=== PATIENT | female | born 1945 | race Caucasian/White ===

== ENCOUNTER → 2022-07-02 15:13 | Outpatient (BNVA) | payer MEDICARE, OTHER, SELFPAY | PROVIDERS: PCP Family Medicine; Visit Provider Family Medicine | DX: E11.9 Type 2 diabetes mellitus without complications (principal); E78.5 Hyperlipidemia, unspecified; I48.91 Unspecified atrial fibrillation; Z95.0 Presence of cardiac pacemaker; R60.9 Edema, unspecified; K21.9 Gastro-esophageal reflux disease without esophagitis; K22.2 Esophageal obstruction; F32.4 Major depressive disorder, single episode, in partial remission; E11.42 Type 2 diabetes mellitus with diabetic polyneuropathy; Z79.01 Long term (current) use of anticoagulants; Z86.711 Personal history of pulmonary embolism; Z85.3 Personal history of malignant neoplasm of breast | CPT/HCPCS: 80053; 80061; 82043; 83036 ==

== ENCOUNTER 2022-07-08 01:00 | Outpatient (CLI) | payer MEDICARE, OTHER, SELFPAY | END 2022-07-08 23:00 | disposition home or self-care (01) | LOC: RAD 09-17 15:30 | PROVIDERS: PCP Family Medicine; Visit Provider Internal Medicine Cardiovascular Disease | DX: I50.9 Heart failure, unspecified (principal); R06.09 Other forms of dyspnea; R06.02 Shortness of breath; I48.91 Unspecified atrial fibrillation; Z86.711 Personal history of pulmonary embolism; I10 Essential (primary) hypertension; R60.9 Edema, unspecified; E78.5 Hyperlipidemia, unspecified | CPT/HCPCS: 36415; 80048; 83880; 85025; 99205 ==

== ENCOUNTER → 2022-07-29 09:42 | Outpatient (BNVA) | payer MEDICARE, OTHER, SELFPAY | PROVIDERS: PCP Family Medicine; Visit Provider Podiatrist Foot & Ankle Surgery | DX: E11.9 Type 2 diabetes mellitus without complications (principal); G62.9 Polyneuropathy, unspecified; B35.1 Tinea unguium; M20.10 Hallux valgus (acquired), unspecified foot; R60.9 Edema, unspecified; Z79.84 Long term (current) use of oral hypoglycemic drugs; Z79.4 Long term (current) use of insulin | CPT/HCPCS: 11721; 99203 ==

== ENCOUNTER 2022-08-08 06:05 | Outpatient (CLI) | payer MEDICARE, OTHER, SELFPAY ==
--- NOTE | 2022-08-08 06:15 | USCV_ITS ---
Merline Kramer Age: 77 Gender: F : 1945 Exam Date: 08/08/2022 06:15 Ordering Phys: Justin Lozano MD ([email or web address]) Technologist: Ilana Hernandez Exam Location: [facility] [place] Indication: History of PE and now unsteady. BP: / HR: 80 Rhythm: Sinus Technical Quality: Adequate MEASUREMENTS (Male / Female) Normal Values 2D ECHO LV Diastolic Diameter PLAX 3.4 cm 4.2 - 5.9 / 3.9 - 5.3 cm LV Systolic Diameter PLAX 2.0 cm LV Chamber Size 3.8 cm IVS Diastolic Thickness 1.2 cm 0.6 - 1.0 / 0.6 - 0.9 cm IVS Systolic Thickness 1.9 cm LVPW Diastolic Thickness 1.6 cm 0.6 - 1.0 / 0.6 - 0.9 cm LVPW Systolic Thickness 1.7 cm RV Chamber Size 3.0 cm LVOT Diameter 2.0 cm LV Ejection Fraction 2D Teich 73.0 % LV Ejection Fraction MOD 2C 74.4 % LV Ejection Fraction 2C AL 74.5 % LA Diameter 4.1 cm LA Width 3.6 cm LA Height 4.7 cm RA Width 2.6 cm RA Height 3.4 cm Aorta at Sinotubular Diameter 2.6 cm IVC Diameter 1.4 cm M-MODE Aortic Annulus Diameter 2.8 cm LA Ao Ratio MM 1.7 MV E Point Septal Separation 1.2 cm DOPPLER AV Peak Velocity 196.7 cm/s LVOT Peak Velocity 89.7 cm/s AV Area Cont Eq vti 1.6 cm squared AV Area Cont Eq pk 1.5 cm squared MV Area PHT 2.9 cm squared Mitral E to A Ratio 0.8 MV E' Velocity 50.5 cm/s Mitral E to MV E' Ratio 17.0 Mitral E to LV E' Lateral Ratio 15.8 Mitral E to LV E' Septal Ratio 18.6 TR Peak Velocity 266.1 cm/s TR Peak Gradient 28.3 mmHg TR Mean Velocity 196.8 cm/s TR Mean Gradient 17.7 mmHg TR Velocity Time Integral 93.0 cm TV Peak E Velocity 91.0 cm/s Right Atrial Pressure 3.0 mmHg Pulmonary Artery Systolic Pressu 31.3 mmHg PV Peak Velocity 74.0 cm/s RV Acceleration Time 0.1 s RV Ejection Time 0.3 s RV AcT/ET 0.4 FINDINGS Left Ventricle Normal left ventricular size and systolic function, EF 74 %. Mild left ventricular hypertrophy. No regional wall motion abnormalities. Grade I/IV diastolic dysfunction (abnormal relaxation filling pattern), normal to mildly elevated filling pressures. Right Ventricle Catheter/pacemaker wire in the right ventricular cavity. Right Atrium Catheter/pacemaker wire in the right atrial appendage. Left Atrium Mildly increased left atrial size. Mitral Valve Thickened mitral valve. Aortic Valve Thickened aortic valve. Trace to mild aortic valve regurgitation. Tricuspid Valve Mild tricuspid valve regurgitation. Estimated pulmonary artery peak systolic pressure of 31 mmHg Pulmonic Valve No gross abnormalities noted Pericardium No pericardial effusion. Aorta Normal aortic annulus size. IVC Normal inferior vena cava. CONCLUSIONS Normal left ventricular size and systolic function, EF 74 %. Mild left ventricular hypertrophy. No regional wall motion abnormalities. Grade I/IV diastolic dysfunction (abnormal relaxation filling pattern), normal to mildly elevated filling pressures. Mildly increased left atrial size. Thickened aortic valve. Trace to mild aortic valve regurgitation. Mild tricuspid valve regurgitation. Estimated pulmonary artery peak systolic pressure of 31 mmHg. Pacemaker wire was noted in the right atrium/right ventricle There is no pericardial effusion. No similar previous studies are available for comparison Dr Justin Lozano MD [facility] (Electronically Signed) Final Date: 08 August 2022 08:53 S
[2022-08-08 07:52] VITALS: BMI 38.2
--- NOTE | 2022-08-08 07:52 | ECG_ITS ---
[facility] Test Date: 2022-08-08 Pat Name: Merline Kramer Department: Room: Gender: Female Slot Attendant: : 1945 Requested By: Justin Lozano Order Number: [id number] Simón MD: Justin Lozano M.D. Interpretive Statements NAME OF STUDY: LEXISCAN SESTAMIBI STRESS TEST INDICATION: CHF, PROCEDURE: At the baseline, the EKG revealed normal sinus rhythm with poor R wave progression. Left axis deviation. Minimal voltage criteria for LVH. Nonspecific T wave changes. The baseline heart was 67 bpm with a blood pressue of 137/97 mm of Hg Lexiscan was infused over a period of 20 seconds. A total of 0.4 milligrams of Lexiscan was infused. The stress phase was continued for a total of 5 minutes. Heart rate at the end of the stress phase was 63 bpm with a blood pressure 167/86 mm of Hg. The EKG at the peak infusion revealed no significant changes. Sestamibi was injected 20 seconds after the Lexiscan infusion. Heart rate at the end of the recovery phase was 63 bpm with a blood pressure of 150/72 mm of Hg. CONCLUSION: 1. No significant EKG changes with the LexiScan infusion 2. No LexiScan induced chest pain or cardiac arrhythmia 3. Normal blood pressure and heart rate response 4. Sestamibi/sestamibi perfusion scan pending; see separate report. Electronically Signed On 08-13-2022 18:15:59 CLIENT SERVICE ASSOCIATE by Justin Lozano M.D. [id number]
--- NOTE | 2022-08-08 07:53 | NMCV_ITS ---
NM tiffany perf SPECT r/s* [id number] Merline Kramer Age: 77 Gender: F : 1945 Exam Date: 08/08/2022 07:53 Ordering Phys: Justin Lozano MD ([email or web address]) Technologist: LIAT Lemus Exam Location: [facility] Indications: CORONARY ANGIOPLASTY STATUS STRESS TEST [facility] IMAGE PROTOCOL Rest/Stress 1 Lexiscan Day Radiopharmaceutical Dose (mCi) Administration Site Administered by Rest: Tc-99m 10.8 IV Sestamibi Stress:Tc-99m 33.0 IV LIAT Mera Sestamibi Rest: 08-Aug-2022 60 Discovery 630 Stress: 08-Aug-2022 30 Discovery 630 0.4mg Lexiscan. Images obtained in supine and prone position. SPECT RESULTS Technical Quality: Excellent Raw Data Analysis: Normal Image Corrections: No attenuation or motion correction applied Summed Stress Score: 6 Summed Rest Score: 6 Summed Difference Score: 0 PERFUSION FINDINGS Small to moderate area of moderately decreased tracer uptake in the mid inferolateral, apical lateral, apical inferior and LV apex. No significant reversibility was noted in these regions FUNCTIONAL RESULTS (calculated via Gated SPECT) Stress Image LV EF (%): 61 Stress EDV (mL):83 TID: 1.02 Stress ESV (mL):32 FUNCTIONAL FINDINGS: Segmental wall motion analysis revealing no gross wall motion abnormalities IMPRESSIONS 1. Myocardial perfusion imaging revealing small to moderate area of persistent decreased tracer uptake in the mid inferolateral and apical regions suggesting myocardial scarring versus attenuation artifact. 2. Normal LV ejection fraction of 61%. 3. LV wall motion analysis revealing no gross wall motion abnormalities. 4. Normal LV volume Low probability for coronary ischemia, based on the above findings Dr Justin Lozano MD [facility] (Electronically Signed) Final Date: 08 August 2022 16:32 S
[2022-08-08] MEDS: regadenoson 0.4 Mg/5 ml Syringe IVP (09:53)
[2022-08-08 10:08] VITALS: BP 150/72; PULSE 63
== END 2022-08-08 06:06 | disposition home or self-care (01) ==
LOC: CDL 06:06
PROVIDERS: PCP Family Medicine; Visit Provider Internal Medicine Cardiovascular Disease
DX: I50.9 Heart failure, unspecified (principal); Z98.61 Coronary angioplasty status; Z86.711 Personal history of pulmonary embolism; I08.2 Rheumatic disorders of both aortic and tricuspid valves; Z95.0 Presence of cardiac pacemaker
CPT/HCPCS: 36415; 78452; 93017; 93306; 96374; A9500; J2785

== ENCOUNTER → 2022-08-23 11:23 | Outpatient (BNVA) | payer MEDICARE, OTHER, SELFPAY | PROVIDERS: PCP Family Medicine; Visit Provider Internal Medicine Cardiovascular Disease | DX: Z45.010 Encounter for checking and testing of cardiac pacemaker pulse generator [battery] (principal) | CPT/HCPCS: 93280 ==

== ENCOUNTER 2022-09-24 15:48 | Outpatient (CLI) | payer MEDICARE, OTHER, SELFPAY | END 2022-09-24 15:49 | disposition home or self-care (01) | LOC: LAB 15:51 | PROVIDERS: PCP Family Medicine; Visit Provider Internal Medicine Cardiovascular Disease | DX: I10 Essential (primary) hypertension (principal); E11.42 Type 2 diabetes mellitus with diabetic polyneuropathy; I48.91 Unspecified atrial fibrillation; I50.9 Heart failure, unspecified | CPT/HCPCS: 36415; 85610 ==

== ENCOUNTER → 2022-10-07 11:36 | Outpatient (BNVA) | payer MEDICARE, OTHER, SELFPAY | PROVIDERS: PCP Family Medicine; Visit Provider Internal Medicine Cardiovascular Disease | DX: I48.91 Unspecified atrial fibrillation (principal); R06.02 Shortness of breath; E11.42 Type 2 diabetes mellitus with diabetic polyneuropathy; Z86.711 Personal history of pulmonary embolism; E78.5 Hyperlipidemia, unspecified; Z95.0 Presence of cardiac pacemaker; I11.0 Hypertensive heart disease with heart failure; I50.32 Chronic diastolic (congestive) heart failure | CPT/HCPCS: 11721; 36415; 80048; 83880; 85610; 99214 ==

== ENCOUNTER → 2022-10-17 12:38 | Outpatient (BNVA) | payer MEDICARE, OTHER, SELFPAY | PROVIDERS: PCP Family Medicine; Visit Provider Internal Medicine Cardiovascular Disease | DX: I48.91 Unspecified atrial fibrillation (principal) | CPT/HCPCS: 85610 ==

== ENCOUNTER → 2022-10-23 11:58 | Outpatient (BNVA) | payer MEDICARE, OTHER, SELFPAY | PROVIDERS: PCP Family Medicine; Visit Provider Internal Medicine Cardiovascular Disease | DX: I48.91 Unspecified atrial fibrillation (principal) | CPT/HCPCS: 85610 ==

== ENCOUNTER → 2022-10-30 11:55 | Outpatient (BNVA) | payer MEDICARE, OTHER, SELFPAY | PROVIDERS: PCP Family Medicine; Visit Provider Internal Medicine Cardiovascular Disease | DX: I48.91 Unspecified atrial fibrillation (principal) | CPT/HCPCS: 85610 ==

== ENCOUNTER → 2022-11-07 08:55 | Outpatient (BNVA) | payer MEDICARE, OTHER, SELFPAY | PROVIDERS: PCP Family Medicine; Visit Provider Nurse Practitioner Family | DX: I11.0 Hypertensive heart disease with heart failure (principal); I50.9 Heart failure, unspecified; Z95.0 Presence of cardiac pacemaker; E11.42 Type 2 diabetes mellitus with diabetic polyneuropathy; Z79.4 Long term (current) use of insulin; Z79.82 Long term (current) use of aspirin; Z79.01 Long term (current) use of anticoagulants; E78.5 Hyperlipidemia, unspecified | CPT/HCPCS: 80048; 83880; 85610; 99214 ==

== ENCOUNTER → 2022-11-14 12:41 | Outpatient (BNVA) | payer MEDICARE, OTHER, SELFPAY | PROVIDERS: PCP Family Medicine; Visit Provider Internal Medicine Cardiovascular Disease | DX: I48.91 Unspecified atrial fibrillation (principal) | CPT/HCPCS: 85610 ==

== ENCOUNTER → 2022-11-22 09:59 | Outpatient (BNVA) | payer MEDICARE, OTHER, SELFPAY | PROVIDERS: PCP Family Medicine; Visit Provider Nurse Practitioner Family | DX: I50.9 Heart failure, unspecified (principal); E78.5 Hyperlipidemia, unspecified | CPT/HCPCS: 36415; 80048; 83880; 99214 ==

== ENCOUNTER 2022-12-04 07:06 | Outpatient (CLI) | payer MEDICARE, OTHER, SELFPAY ==
--- NOTE | 2022-12-04 07:15 | USCV_ITS ---
Merline Kramer Age: 77 Gender: F : 1945 Exam Date: 12/04/2022 07:36 Ordering Phys: Frances Giraldo Technologist: JULIANNA Exam Location: [facility] [place]_ Indication: HISTORY: Lower extremity swelling. Lower extremity edema. PROCEDURES: Venous duplex imaging was performed in bilateral lower extremities. The following venous structures were evaluated: common femoral vein, profunda vein, proximal portion of the greater saphenous vein, superficial femoral vein, and the popliteal vein. Serial compression, augmentation maneuvers, and spectral Doppler flow evaluation were performed. An evaluation for venous insufficiency was also completed. FINDINGS: Chronic DVT seen in Right CFV Brewer's cyst seen in Left Pop Fossa 4.2X2.3X4.2cm Edema seen in Bilat lower legs Echodensity was noted in the right common femoral vein. Significant reflux was noted in the right femoral and popliteal veins with reflux times of 1020 and 1870 ms. Echolucent areas were noted in the subcutaneous tissue of the calf. Echolucent area in the left popliteal fossa measuring 4.19 x 2.3 cm. Significant venous reflux was noted in the left popliteal vein with a reflux time of 1560 ms CONCLUSIONS 1. Features of old DVT with recanalization in the right common femoral vein. 2. Significant venous reflux of greater than 1000 ms were noted in the right femoral, popliteal and left popliteal veins 3. Echolucent area, suggesting a Brewer's cyst, measuring 4.19 x 2.3 cm in the left popliteal region 4. No significant venous insufficiency was noted in the superficial veins Dr Justin Lozano MD [facility] (Electronically Signed) Final Date: 06 December 2022 21:48 S
== END 2022-12-04 07:07 | disposition home or self-care (01) ==
LOC: RAD 07:09
PROVIDERS: PCP Family Medicine; Visit Provider Nurse Practitioner Family
DX: E11.42 Type 2 diabetes mellitus with diabetic polyneuropathy (principal); I10 Essential (primary) hypertension; R60.0 Localized edema; Z86.711 Personal history of pulmonary embolism; Z86.718 Personal history of other venous thrombosis and embolism
CPT/HCPCS: 93970

== ENCOUNTER → 2022-12-09 09:51 | Outpatient (BNVA) | payer MEDICARE, OTHER, SELFPAY | PROVIDERS: PCP Family Medicine; Referring Provider Family Medicine; Visit Provider Internal Medicine | DX: E11.42 Type 2 diabetes mellitus with diabetic polyneuropathy (principal); E78.5 Hyperlipidemia, unspecified; M81.0 Age-related osteoporosis without current pathological fracture; I50.9 Heart failure, unspecified; Z79.84 Long term (current) use of oral hypoglycemic drugs | CPT/HCPCS: 99204 ==

== ENCOUNTER 2022-12-09 11:52 | Emergency (ER) | payer MEDICARE, OTHER, SELFPAY ==
[2022-12-09 12:28] VITALS: BP 116/76; PULSE 69; RESP 15; TEMP 36.4; O2SAT 96; BMI 39.4
--- NOTE | 2022-12-09 12:39 | XR_ITS ---
WS: [id number] Exam: XR foot LT min 3V* [id number] Date/Time of Exam: 12/09/2022 1:06 PM Reason For Exam: Foot pain No acute fracture noted. The lateral view shows dorsal subluxation of at least 2 of the proximal meta tarsals at the Lisfranc joint. There is degenerative changes in the midfoot joints and the IP joints. Soft tissue swelling of the foot. XR/XR foot LT min 3V* [id number] IMPRESSION: 1. The lateral view shows partial dorsal subluxation of at least 2 proximal met atarsals. Difficult to determine exactly which ones from this study. There is m arked degenerative change in the midfoot joints and at the Lisfranc joint. 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 CT of the foot could be helpful for further workup if thought to be clinically warranted.
--- NOTE | 2022-12-09 13:46 | ED_ITS ---
Documented by User: [email or web address] Royal 12/10/22 07:12 HPI - Extremity Problem General: Chief complaint: Extremity Injury, Lower Stated complaint: Left Foot injury Time Seen by Provider: 12/09/22 13:17 History of Present Illness: Patient is a 77-year-old female comes to the ED with left foot pain and swelling. Past medical history of diabetes and peripheral neuropathy. Symptoms started approximately 2 days ago. Denies any known injury or trauma to cause pain or swelling in foot. Patient states that she did break a bone in her foot a couple years ago from just walking on it. She states that this pain is similar to her past foot fracture. She rates the pain currently a 9 out of 10 says it worsens with any ambulation. Denies any redness or warmth to foot. Associated symptoms: Deny chest pain, fever(s) or rash Review of Systems Const: Denies: fever(s), chills or fatigue Eyes: Denies: change in vision or eye discomfort ENMT: Denies: throat pain, odynophagia, nasal discharge or nasal congestion Card: Denies: chest pain, palpitations, edema, swelling of feet/ankles, dyspnea on exertion or orthopnea Resp: Denies: dyspnea, productive cough or non-productive cough GI: Denies: abdominal pain, nausea, vomiting, diarrhea, constipation or hematochezia : Denies: flank pain, dysuria or hematuria Musc: Reports: extremity pain (left foot) and extremity swelling (left foot); Denies: neck pain or back pain Skin/Breast: Denies: rash or new lesions Neuro: Denies: headache(s), numbness in extremities or weakness in extremities [facility] ED PFSH: Medical History Anticoagulated Atrial fibrillation Depression, major, in partial remission Diabetes mellitus Diabetic peripheral neuropathy GERD with stricture s/p dilation x 2 History of breast cancer History of nonmelanoma skin cancer History of pulmonary embolism Hyperlipidemia Insulin dependent diabetes mellitus Pacemaker Surgical History History of bunionectomy of right great toe History of cholecystectomy History of lumpectomy of left breast History of repair of right rotator cuff History of tonsillectomy History of ventral hernia repair Family History Mother CAD (coronary artery disease) Father Cancer lung (smoker) Grandfather Dementia Cancer Brother Diabetes Son Diabetes Daughter CAD (coronary artery disease) Grandmother CAD (coronary artery disease) Family/Other Chronic kidney disease (CKD) Denies family history of Clotting disorder Suicide Anesthesia complication Bleeding disorder Hypertension Stroke Social History Smoking and tobacco status: never smoked Alcohol intake: never Substance/Drug Use: never Lives independently: Yes Household members: spouse Marital status: Number of children: 3 Number of grandchildren: 4 Current occupational status: retired Physical Exam Const: COMMON NORMALS: patient oriented x3 HENMT: COMMON NORMALS: normocephalic HEAD & SCALP: normocephalic MOUTH: Normal oral and palatal mucosa present THROAT: posterior oropharynx normal and uvula midline Neck/C-Spine: COMMON NORMALS: supple GENERAL: Yes normal visual inspection Resp: COMMON NORMALS: normal respiratory effort, No retractions, No use of accessory muscles and clear to auscultation bilaterally AUSCULTATION: clear to auscultation bilaterally Cardio: COMMON NORMALS: regular rate, regular rhythm, S1 normal heart sound present, S2 normal heart sound present, No gallops present (Cardio), No clicks present (Cardio), No murmurs present (Cardio) and Peripheral pulses 2+ throughout RATE: regular rate RHYTHM: regular rhythm HEART SOUNDS: S1 normal heart sound present and S2 normal heart sound present PERIPHERAL PULSES: Peripheral pulses 2+ throughout GI: COMMON NORMALS: Normal to inspection, nondistended, normoactive bowel sounds present, Soft to palpation, non-tender and no masses PALPATION: Yes Soft to palpation : COMMON NORMALS: Yes no CVA tenderness BLADDER/KIDNEY EXAM: Yes no CVA tenderness Back/Pelvis: COMMON NORMALS: no CVA tenderness Extremity: NARRATIVE EXTREMITY EXAM: Left foot?2+ pitting edema in foot and ankle. Tenderness over midfoot region. No visible deformity, erythema or warmth noted. Neurovascular intact. Pedal pulse 2+. Neuro: COMMON NORMALS: patient oriented x3 GAIT: Yes Normal gait present Skin: GENERAL SKIN EXAM: dry skin Course Vital Signs: Vital signs: Vital Signs Temperature 97.6 F 12/09/22 12:28 Pulse Rate 65 12/09/22 17:03 Respiratory Rate 16 12/09/22 17:03 Blood Pressure 112/73 12/09/22 17:03 Pulse Oximetry 93 12/09/22 17:03 Oxygen Delivery Me thod Room Air 12/09/22 12:28 MDM - Extremity (Nontraumatic) Medical Decision Making Patient is a 77-year-old female comes to the ED with left foot pain and swelling. Past medical history of diabetes and peripheral neuropathy. Symptoms started approximately 2 days ago. Denies any known injury or trauma to cause pain or swelling in foot. Patient states that she did break a bone in her foot a couple years ago from just walking on it. She states that this pain is similar to her past foot fracture. She rates the pain currently a 9 out of 10 says it worsens with any ambulation. Denies any redness or warmth to foot. Vitals stable. Left foot?2+ pitting edema in foot and ankle. Tenderness over midfoot region. No visible deformity, erythema or warmth noted. Neurovascular intact. Pedal pulse 2+. Upon exam no concern for cellulitis, gout or septic joint. X-ray of left foot shows partial dorsal subluxation of at least 2 proximal metatarsals. Change in midfoot joints and at Lisfranc joint may represent beginnings of Charcot's neuropathy. I placed an order with case management for patient to be referred to Ortho or podiatry for arthralgia of left foot. Patient was put in a boot and told to use her walker and limit weightbearing on left foot until seen by orthopedist or lift electrician. Patient sent home with prescription for pain med. Return to ED precautions given. Dr. Olea reviewed case and agreed with plan. Lab Data Radiology Impressions Foot X-Ray 12/09/22 12:39 IMPRESSION: 1. The lateral view shows partial dorsal subluxation of at least 2 proximal metatarsals. Difficult to determine exactly which ones from this study. There is marked degenerative change in the midfoot joints and at the Lisfranc joint. 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 CT of the foot could be helpful for further workup if thought to be clinically warranted. Discharge Plan Discharge Patient Disposition: Home Clinical Impression: Arthralgia of foot, left Condition: Stable Prescriptions: No Action tramadol 50 mg tablet 50 mg PO DAILY PRN (Reason: pain) metformin 1,000 mg tablet 1,000 mg PO BID atorvastatin 80 mg tablet 80 mg PO DAILY aspirin 81 mg tablet,delayed release (DR/EC) 81 mg PO DAILY pantoprazole 40 mg tablet,delayed release (DR/EC) 40 mg PO DAILY Qty: 90 1RF potassium chloride 20 mEq tablet extended release 20 meq PO BID Qty: 60 5RF Xarelto 20 mg tablet 20 mg PO DAILY Rx Instructions: must administer with evening meal Novolin 70/30 U-100 Insulin 100 unit/mL (70-30) suspension 25 unit SUBCUT BID torsemide 20 mg tablet 40 mg PO QAM PRN (Reason: edema) Qty: 60 0RF lisinopril 5 mg tablet 5 mg PO DAILY Qty: 90 3RF metoprolol succinate 50 mg tablet extended release 24 hr 50 mg PO DAILY 90 Days Qty: 90 0RF pioglitazone 30 mg tablet 30 mg PO DAILY 90 Days Qty: 90 0RF sertraline 100 mg tablet 100 mg PO DAILY 90 Days Qty: 90 0RF (DME) insulin syringe-needle U-100 [BD Insulin Syringe] 1 mL 29 gauge x 1/2 syringe See Rx Instructions .Route Qty: 500 0RF Rx Instructions: Inject insulin, twice, daily. pregabalin [Lyrica] 150 mg capsule See Rx Instructions PO QAM Qty: 180 0RF Rx Instructions: 1 po qam & 2 po qpm Discharge Orders: Discharge ED (Routine); Ordered 12/09/22 Ordered By: Bolivar Curiel Referrals: Josefa Smith MD [Primary Care Provider] - Discharge Diet: Regular Discharge Activity: Limit activity as instructed and Use walker/crutches as instructed Patient Instructions: Arthralgia (ED), Opioid Safety Activity Restrictions/Additional Instructions: Follow-up with medical provider as directed. Case management should be contacting you in the next several days to set up an appointment with podiatry/orthopedic doctor for left foot pain and swelling. Wear boot and use walker to help with ambulation and limit any weightbearing on left foot. Take medications as prescribed. Return to the ER or your medical provider if condition worsens. Please read and understand discharge instructions. Thank you for choosing [facility] for your healthcare needs today. Please realize this is an emergency room and that we are providing you with a medical screening exam and this may not be complete and all inclusive of all the testing and or work up that you may need to determine your ailment or severity of your illness. It is very important that you follow up as instructed or that you return to the Emergency Department should you have concerns or if your condition changes or worsens in any way. Coding Level of Care Code ED Cash On Delivery Clerk for Chg Fwd Documented by User: Jabari Olea, 12/14/22 23:57 HPI - Extremity Problem General: Chief complaint: Extremity Injury, Lower Stated complaint: Left Foot injury Time Seen by Provider: 12/09/22 13:17 [facility] ED PFSH: Medical History Anticoagulated Atrial fibrillation Depression, major, in partial remission Diabetes mellitus Diabetic peripheral neuropathy GERD with stricture s/p dilation x 2 History of breast cancer History of nonmelanoma skin cancer History of pulmonary embolism Hyperlipidemia Insulin dependent diabetes mellitus Pacemaker Surgical History History of bunionectomy of right great toe History of cholecystectomy History of lumpectomy of left breast History of repair of right rotator cuff History of tonsillectomy History of ventral hernia repair Family History Mother CAD (coronary artery disease) Father Cancer lung (smoker) Grandfather Dementia Cancer Brother Diabetes Son Diabetes Daughter CAD (coronary artery disease) Grandmother CAD (coronary artery disease) Family/Other Chronic kidney disease (CKD) Denies family history of Clotting disorder Suicide Anesthesia complication Bleeding disorder Hypertension Stroke Social History Smoking and tobacco status: never smoked Alcohol intake: never Substance/Drug Use: never Lives independently: Yes Household members: spouse Marital status: Number of children: 3 Number of grandchildren: 4 Current occupational status: retired Course Vital Signs: Vital signs: Vital Signs Temperature 97.6 F 12/09/22 12:28 Pulse Rate 65 12/09/22 17:03 Respiratory Rate 16 12/09/22 17:03 Blood Pressure 112/73 12/09/22 17:03 Pulse Oximetry 93 12/09/22 17:03 Oxygen Delivery Me thod Room Air 12/09/22 12:28 MDM - Extremity (Nontraumatic) Medical Decision Making Patient is a 77-year-old female comes to the ED with left foot pain and swelling. Past medical history of diabetes and peripheral neuropathy. Symptoms started approximately 2 days ago. Denies any known injury or trauma to cause pain or swelling in foot. Patient states that she did break a bone in her foot a couple years ago from just walking on it. She states that this pain is similar to her past foot fracture. She rates the pain currently a 9 out of 10 says it worsens with any ambulation. Denies any redness or warmth to foot. Vitals stable. Left foot?2+ pitting edema in foot and ankle. Tenderness over midfoot region. No visible deformity, erythema or warmth noted. Neurovascular intact. Pedal pulse 2+. Upon exam no concern for cellulitis, gout or septic joint. X-ray of left foot shows partial dorsal subluxation of at least 2 proximal metatarsals. Change in midfoot joints and at Lisfranc joint may represent beginnings of Charcot's neuropathy. I placed an order with case management for patient to be referred to Ortho or podiatry for arthralgia of left foot. Patient was put in a boot and told to use her walker and limit weightbearing on left foot until seen by orthopedist or lift electrician. Patient sent home with prescription for pain med. Return to ED precautions given. Dr. Olea reviewed case and agreed with plan. This patient was originally seen by Mr. Moisés PA-C.? I agree with his history, evaluation, and treatment. Lab Data Radiology Impressions Foot X-Ray 12/09/22 12:39 IMPRESSION: 1. The lateral view shows partial dorsal subluxation of at least 2 proximal metatarsals. Difficult to determine exactly which ones from this study. There is marked degenerative change in the midfoot joints and at the Lisfranc joint. 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 CT of the foot could be helpful for further workup if thought to be clinically warranted. Discharge Plan Discharge Patient Disposition: Home Clinical Impression: Arthralgia of foot, left Condition: Stable Prescriptions: No Action tramadol 50 mg tablet 50 mg PO DAILY PRN (Reason: pain) metformin 1,000 mg tablet 1,000 mg PO BID atorvastatin 80 mg tablet 80 mg PO DAILY aspirin 81 mg tablet,delayed release (DR/EC) 81 mg PO DAILY pantoprazole 40 mg tablet,delayed release (DR/EC) 40 mg PO DAILY Qty: 90 1RF potassium chloride 20 mEq tablet extended release 20 meq PO BID Qty: 60 5RF Xarelto 20 mg tablet 20 mg PO DAILY Rx Instructions: must administer with evening meal Novolin 70/30 U-100 Insulin 100 unit/mL (70-30) suspension 25 unit SUBCUT BID torsemide 20 mg tablet 40 mg PO QAM PRN (Reason: edema) Qty: 60 0RF lisinopril 5 mg tablet 5 mg PO DAILY Qty: 90 3RF metoprolol succinate 50 mg tablet extended release 24 hr 50 mg PO DAILY 90 Days Qty: 90 0RF pioglitazone 30 mg tablet 30 mg PO DAILY 90 Days Qty: 90 0RF sertraline 100 mg tablet 100 mg PO DAILY 90 Days Qty: 90 0RF (DME) insulin syringe-needle U-100 [BD Insulin Syringe] 1 mL 29 gauge x 1/2 syringe See Rx Instructions .Route Qty: 500 0RF Rx Instructions: Inject insulin, twice, daily. pregabalin [Lyrica] 150 mg capsule See Rx Instructions PO QAM Qty: 180 0RF Rx Instructions: 1 po qam & 2 po qpm Discharge Orders: Discharge ED (Routine); Ordered 12/09/22 Ordered By: Bolivar Curiel Referrals: Josefa Smith MD [Primary Care Provider] - Discharge Diet: Regular Discharge Activity: Limit activity as instructed and Use walker/crutches as instructed Patient Instructions: Arthralgia (ED), Opioid Safety Activity Restrictions/Additional Instructions: Follow-up with medical provider as directed. Case management should be contacting you in the next several days to set up an appointment with podiatry/orthopedic doctor for left foot pain and swelling. Wear boot and use walker to help with ambulation and limit any weightbearing on left foot. Take medications as prescribed. Return to the ER or your medical provider if condition worsens. Please read and understand discharge instructions. Thank you for choosing [facility] for your healthcare needs today. Please realize this is an emergency room and that we are providing you with a medical screening exam and this may not be complete and all inclusive of all the testing and or work up that you may need to determine your ailment or severity of your illness. It is very important that you follow up as instructed or that you return to the Emergency Department should you have concerns or if your condition changes or worsens in any way. Coding Level of Care Code ED Cash On Delivery Clerk for Alberto Shetty
--- NOTE | 2022-12-09 13:48 | USCV_ITS ---
Merline Kramer Age: 77 Gender: F : 1945 Exam Date: 12/09/2022 15:16 Ordering Phys: Bolivar Curiel Technologist: CT [place] [facility] [place]: foot pain PROCEDURES: Venous duplex imaging was performed in only the left lower extremity. The following venous structures were evaluated: common femoral vein, profunda vein, proximal portion of the greater saphenous vein, superficial femoral vein, and the popliteal vein. In addition, the posterior tibial and peroneal trunk were evaluated. On the left side, the common femoral, superficial femoral, profunda femoral, popliteal, posterior tibial, greater saphenous veins, and the peroneal trunk were identified and interrogated in the standard fashion. These veins were found to be easily compressible with spontaneous blood flow. No evidence of insufficiency or thrombus noted. FINDINGS: no evidence of dvt, somewhat limited due to habitus, fv is small and difficult to see past the proximal portion in 2d. CONCLUSIONS No evidence of left lower extremity DVT. Somewhat limited exam Fausto Isbell MD (Electronically Signed) Final Date: 09 December 2022 17:11 S
[2022-12-09] MEDS: HYDROcodone-acetaminophen 7.5-325 mg Tablet 1 TAB PO (14:06)
--- NOTE | 2022-12-09 16:47 | PC.NURSE ---
PHYSICAL THERAPY APPLIED ORTHO BOOT TO PT LEFT LOWER EXTREMITY
[2022-12-09 17:00] VITALS: BP 112/73; PULSE 65; RESP 16; O2SAT 93
[2022-12-09 17:03] VITALS: BP 112/73; PULSE 65; RESP 16; O2SAT 93
--- NOTE | 2022-12-10 08:24 | DCPLANNER ---
Addendum entered by Martha Baldwin 12/18/22 11:23: Patient had a follow up appointment scheduled with ortho - patient did attend appointment. Addendum entered by Martha Baldwin 12/10/22 13:50: Patient has a follow up appointment scheduled for Friday, December 16, 2022 at 10:[address] Smallwood at ortho. Original Note: manager document control had message to schedule a follow up appointment for patient with ortho. manager document control sent patients information to the front office staff at ortho. Patients information will be printed and reviewed. Clinic will call patient with appointment information.
== END 2022-12-09 17:05 | disposition home or self-care (01) ==
PROVIDERS: Emergency Provider Physician Assistant; PCP Family Medicine
DX: M25.572 Pain in left ankle and joints of left foot (principal); Z79.82 Long term (current) use of aspirin; Z79.4 Long term (current) use of insulin; Z79.84 Long term (current) use of oral hypoglycemic drugs; E11.9 Type 2 diabetes mellitus without complications; Z85.3 Personal history of malignant neoplasm of breast; E78.5 Hyperlipidemia, unspecified; Z95.0 Presence of cardiac pacemaker
CPT/HCPCS: 73630; 93971; 97760; 99283; L4361

== ENCOUNTER 2022-12-16 11:34 | Outpatient (CLI) | payer MEDICARE, OTHER, SELFPAY ==
[2022-12-16 12:55] LABS: Chol HDL Ratio 2.59 mg/dL (0.0-4.40); Cholesterol 127 mg/dL (0-200); HDL Cholesterol 49 mg/dL (60-100); LDL Cholesterol Calculated 53 mg/dL (50-129); LDL HDL Ratio 1.08 RATIO (0.00-3.22); Triglycerides 127 mg/dL (0-150)
[2022-12-16 13:30] LABS: Estmated Average Glucose 148; Hemoglobin A1C 6.8 % (4.0-6.0)
== END 2022-12-16 11:35 | disposition home or self-care (01) ==
LOC: LAB 11:40
PROVIDERS: PCP Family Medicine; Visit Provider Internal Medicine
DX: E78.5 Hyperlipidemia, unspecified (principal); E11.42 Type 2 diabetes mellitus with diabetic polyneuropathy; G62.9 Polyneuropathy, unspecified; B35.1 Tinea unguium; M20.10 Hallux valgus (acquired), unspecified foot; R60.9 Edema, unspecified; S93.326A Dislocation of tarsometatarsal joint of unspecified foot, initial encounter; X58.XXXA Exposure to other specified factors, initial encounter; E11.9 Type 2 diabetes mellitus without complications; Z79.84 Long term (current) use of oral hypoglycemic drugs
CPT/HCPCS: 11721; 36415; 80061; 83036; 99213

== ENCOUNTER 2022-12-23 15:17 | Outpatient (CLI) | payer MEDICARE, OTHER, SELFPAY ==
--- NOTE | 2022-12-23 15:00 | CT_ITS ---
WS: [id number] CT LEFT FOOT, NONCONTRAST, 3-D. HISTORY: Lisfranc dislocation Technique: All CT scans at [facility] use at least one of these dose optimization techniques: automated exposure control; mA and/or kV adjustment per patient size (includes targeted exams where dose is matched to clinical indication); or iterative reconstruction. DLP: 123.92 mGy.cm COMPARISON: Radiographs 12/09/2022. Extensive fracture dislocation involving the tarsometatarsal articulations. 1. Marked widening between the proximal first and second metatarsals to 8.7 mm from a Lisfranc injury . 2. Abnormal alignment between the medial cuneiform and the proximal second metatarsal. Second metatar ld is slightly subluxed into the interspace between the first and second metatarsals. 3. Dorsal dislocation of the metatarsals is better visualized on the radiographs and is predominantly involving the second and possibly the third metatarsal. Second metatarsal dorsal subluxation by 11 m m. 4. Multiple small osseous fragments are identified in the midfoot. Small avulsion fractures from the medial cuneiform. There may be small avulsion from the base of the first metatarsal. There are multip le small bony fragments and fractures involving the intermediate cuneiform and the adjacent subluxed second metatarsal. Small avulsion fractures from the lateral cuneiform. Cuboid is probably intact. Na vicular is probably intact. There are small bony protrusions which may be osteophytes. Normal alignme nt with the remaining hindfoot. Small avulsion fractures between the articulation metatarsal and thir d and fourth metatarsals. Donor sites are indeterminate. 5. Extensive soft tissue edema surrounding the foot. 6. Calcaneus and talus are negative. CT/CT foot LT wo con* [id number] IMPRESSION: 1. Severe Lisfranc fracture dislocation. 2. Lisfranc joint widening up to 8.7 mm. 3. Dorsal subluxation by 11 mm at the second metatarsal. This is the predomina nt metatarsal with dorsal subluxation. 4. Numerous small avulsion fractures in the midfoot. Donor sites are difficult to determine but there are fracture sites from the cuneiforms, base of the fir st and second metatarsals. Tiny avulsion fractures between the third and fourth tarsometatarsal articulations, donor site indeterminate. 5. Subluxation with invagination of the intermediate cuneiform between the fir st and second proximal metatarsals.
== END 2022-12-23 15:18 | disposition home or self-care (01) ==
PROVIDERS: PCP Family Medicine; Visit Provider Podiatrist Foot & Ankle Surgery
DX: S93.326A Dislocation of tarsometatarsal joint of unspecified foot, initial encounter (principal); X58.XXXA Exposure to other specified factors, initial encounter; E11.42 Type 2 diabetes mellitus with diabetic polyneuropathy; E11.649 Type 2 diabetes mellitus with hypoglycemia without coma; E78.5 Hyperlipidemia, unspecified; M81.0 Age-related osteoporosis without current pathological fracture; Z79.4 Long term (current) use of insulin
CPT/HCPCS: 73700; 99213; 99214

== ENCOUNTER → 2022-12-30 13:27 | Outpatient (BNVA) | payer MEDICARE, OTHER, SELFPAY | PROVIDERS: PCP Family Medicine; Visit Provider Podiatrist Foot & Ankle Surgery | DX: E11.42 Type 2 diabetes mellitus with diabetic polyneuropathy (principal); G62.9 Polyneuropathy, unspecified; R60.9 Edema, unspecified; S93.322A Subluxation of tarsometatarsal joint of left foot, initial encounter; X58.XXXA Exposure to other specified factors, initial encounter; Z79.84 Long term (current) use of oral hypoglycemic drugs; Z79.4 Long term (current) use of insulin | CPT/HCPCS: 99214 ==

== ENCOUNTER → 2023-01-07 10:58 | Outpatient (BNVA) | payer MEDICARE, OTHER, SELFPAY | PROVIDERS: PCP Family Medicine; Visit Provider Clinical Nurse Specialist Adult Health | DX: Z01.818 Encounter for other preprocedural examination (principal) | CPT/HCPCS: 80048; 85025 ==

== ENCOUNTER 2023-01-09 08:55 | Day surgery (SDC) | payer MEDICARE, OTHER, SELFPAY ==
[2023-01-08 09:01] VITALS: BMI 36.8
[2023-01-09] VITALS (9 sets, daily range): BP systolic 98–174; BP diastolic 66–103; PULSE 62–70; RESP 16–18; TEMP 36.1; O2SAT 92–99
[2023-01-09 09:41] LABS: Glucose Point of Care 258 mg/dL (70-110)
[2023-01-09] MEDS: sodium chloride 0.9% 1,000 ML 30 ML IV (09:45)
[2023-01-09] MEDS: acetaminophen 1,000 MG/100 ML PIGGYBACK 400 MG IV (09:46)
[2023-01-09] MEDS: gabapentin 300 mg Capsule PO (09:46)
[2023-01-09 09:49] LABS: Basophils # 0.1 10^3/uL (0.0-0.1); Basophils % 0.7 %; Eosinophils # 0.3 10^3/uL (0.0-0.8); Eosinophils % 3.8 %; Hematocrit 40.8 % (37.0-47.0); Hemoglobin 13.3 g/dL (11.5-15.3); Lymphocytes # 2.6 10^3/uL (0.8-4.8); Lymphocytes % 34.4 %; Mean Corpuscular HGB Conc 32.6 g/dL (30.0-36.0); Mean Corpuscular Hemoglobin 29.3 pg (28.0-34.0); Mean Corpuscular Volume 89.9 fl (81-99); Mean Platelet Volume 10.7 fL (7.4-10.4); Monocytes # 0.8 10^3/uL (0.2-0.9); Monocytes % 10.1 %; Neutrophils # 3.85 10^3/uL (1.8-7.7); Neutrophils % 50.9 %; Nucleated Red Blood Cells % 0 %; Platelet Count 155 10^3/cmm (130-400); Red Blood Count 4.54 10^6/uL (4.1-5.3); Red Cell Distribution Width 13.8 % (12.1-15.1); White Blood Count 7.6 10^3/uL (4.0-10.0)
[2023-01-09 10:05] LABS: Anion Gap 15.5 (5-19); Blood Urea Nitrogen 29 mg/dL (8-23); Calcium 9.4 mg/dL (8.5-10.5); Carbon Dioxide 26 mmol/L (22-29); Chloride 99 mmol/L (98-107); Glucose 250 mg/dL (65-115); Osmolality Calculated 296 mOsm/kg (285-295); Potassium 4.5 mmol/L (3.5-5.1); Sodium 136 mmol/L (136-145)
[2023-01-09 10:06] LABS: Creatinine Clr Calc Pharmacy 42.3989
--- NOTE | 2023-01-09 10:41 | ANES.PREANE2 ---
Pre-Anesthetic Assessment Height/Weight: Height 1.63 m Weight 97.522 kg Temp Pulse Resp BP Pulse Ox O2 Del Method 97.0 F L 69 18 149/82 97 Room Air 01/09/23 09:46 01/09/23 09:46 01/09/23 09:46 01/09/23 09:46 01/09/23 09:46 01/09/23 09:55 Preop Diagnosis: Left foot Lisfranc fracture dislocation Operation Date: 01/09/23 10:45 Proposed Procedures p Lisfranc fusion of first, second, third tarsometatarsal joints left foot CPT 53406, S93.326A(Left) - Jessee Smallwood DPM Familial anesthetic complications: none Was Beta Beny taken within 24 hours: N/A Was Clonidine taken within 24 hours: N/A Last intake: Intake Last Liquid Date 01/08/23 Last Liquid Time 23:30 Last Solid Date 01/08/23 Last Solid Time 19:00 Social No alcohol and No tobacco Exam alert, oriented x 3, clear to auscultation bilaterally and regular rate & rhythm Airway Submandibular: within normal limits Cervical ROM: within normal limits Mallampati: Class II Dentition: full CV/HEM PE, anticoagulation, Pacemaker CONCLUSIONS ?Normal left ventricular size and systolic function, EF 74 %. ?Mild left ventricular hypertrophy. No regional wall motion ?abnormalities. Grade I/IV diastolic dysfunction (abnormal ?relaxation filling pattern), normal to mildly elevated filling ?pressures. ?Mildly increased left atrial size. ?Thickened aortic valve. Trace to mild aortic valve ?regurgitation. ?Mild tricuspid valve regurgitation.? Estimated pulmonary artery ?peak systolic pressure of 31 mmHg. ?Pacemaker wire was noted in the right atrium/right ventricle ?There is no pericardial effusion. ?No similar previous studies are available for comparison ?Dr Justin Lozano MD [facility] ?(Electronically Signed) ?Final Date:? ? ? July Chronic Renal Insufficiency GI Gastroesophageal Reflux Disease Metabolic Diabetes Mellitus, Hyperlipidemia and Morbid Obesity Neuropsych Anxiety, Depression and Neuropathy Anesthetic Plan ASA status: 3 Anesthesia: General and Regional (specify below) (left pop blk) Medications/Allergies Home Medications Medication Instructions Recorded Confirmed Last Taken Type aspirin 81 mg tablet,delayed 81 mg PO DAILY 07/02/22 01/08/23 01/08/23 History release atorvastatin 80 mg tablet 80 mg PO DAILY 07/02/22 01/08/2301/08/23 History pantoprazole 40 mg tablet,delayed 40 mg PO DAILY #90 tabs 07/02/22 01/08/23 01/08/23 Rx release tramadol 50 mg tablet 50 mg PO DAILY PRN pain 07/02/22 01/09/23 01/08/23 History lisinopril 5 mg tablet 5 mg PO DAILY #90 tabs 09/02/22 01/08/23 01/08/23 Rx pioglitazone 30 mg tablet 30 mg PO DAILY 90 days #90 tabs 09/02/22 01/08/23 01/08/23 Rx sertraline 100 mg tablet 100 mg PO DAILY 90 days #90 tabs 09/02/22 01/08/23 01/08/23 Rx insulin syringe-needle U-100 1 mL #500 ea 10/03/22 01/08/23 01/08/23 Rx 29 gauge x 1/2 (BD Insulin Syringe) potassium chloride 20 mEq 20 meq PO BID #60 tabs 10/07/22 01/08/23 01/08/23 Rx tablet,extended release insulin human U-100 NPH-regulr 25 unit SUBCUT BID 11/07/22 01/08/23 01/08/23 History 70-30 mix 100 unit/mL subcutaneous susp (Novolin 70/30 U-100 Insulin) torsemide 20 mg tablet 40 mg PO QAM PRN edema #60 tabs 11/07/22 01/09/23 01/08/23 Rx rivaroxaban 20 mg tablet (Xarelto) 20 mg PO DAILY 11/22/22 01/08/23 01/08/23 History wheelchair #1 ea 12/16/22 01/08/23 01/08/23 Rx metoprolol succinate 50 mg 50 mg PO DAILY 01/08/23 01/08/23 01/09/23 08:15 History tablet,extended release 24 hr pregabalin 150 mg capsule (Lyrica) 150 mg PO DIRECTED 01/08/23 01/08/23 01/08/23 History Allergies Allergy/AdvReac Type Severity Reaction Status Date / Time adhesive tape Allergy Severe rash Uncoded 01/08/23 08:59 latex Allergy rash Uncoded 01/08/23 08:59 Current Medications Generic Name Dose Route Start Last Admin Trade Name Freq PRN Reason Stop Dose Admin Sodium Chloride 1,000 mls @ 30 mls/hr 01/09/23 09:15 01/09/23 09:45 Sodium Chloride 0.9% IV 01/10/23 09:14 30 mls/hr .Q24H DEVORAH Administration PFSH Anesthesia Medical History (Updated 01/07/23 @ 15:17 by Ross Mckinnon NP) Anticoagulated Arthritis Atrial fibrillation CKD (chronic kidney disease) stage 2, GFR 60-89 ml/min Congestive heart failure chronic diastolic. 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 Sleep apnea compliant with CPAP Tricuspid regurgitation Surgical History History of bunionectomy of right great toe History of cholecystectomy History of esophageal dilatation History of lumpectomy of left breast History of repair of right rotator cuff History of tonsillectomy History of ventral hernia repair Hx of cardiac pacemaker Hx of cataract extraction Hx of cornea transplant Hx of tubal ligation Hx of umbilical hernia repair Family History Mother CAD (coronary artery disease) Father Cancer lung (smoker) Grandfather Dementia Cancer Brother Diabetes Son Diabetes Daughter CAD (coronary artery disease) Grandmother CAD (coronary artery disease) Family/Other Chronic kidney disease (CKD) Denies family history of Clotting disorder Suicide Anesthesia complication Bleeding disorder Hypertension Stroke Social History Smoking and tobacco status: never smoked Alcohol intake: never Substance/Drug Use: never Lives independently: Yes Household members: spouse Marital status: Number of children: 3 Number of grandchildren: 4 Current occupational status: retired Data Anesthesia 01/09/23 09:38 01/09/23 09:38 Short CBC 01/09/23 Range/Units 09:38 WBC 7.6 (4.0-10.0) 10^3/uL Hgb 13.3 (11.5-15.3) g/dL Hct 40.8 (37.0-47.0) % MCV 89.9 (81-99) fl Plt Count 155 (130-400) 10^3/cmm Neut % (Auto) 50.9 % Neut # (Auto) 3.85 (1.8-7.7) 10^3/uL BMP 01/09/23 09:38 Sodium 136 Potassium 4.5 Chloride 99 Carbon Dioxide 26 BUN 29 H Creatinine 1.3 H Glucose 250 H Calcium 9.4 Cardiac Studies: Echocardiogram 08/08/22 Sestamibi Stress Test (Cardiology) 08/08/22
--- NOTE | 2023-01-09 11:07 | W.PM.OPSUD ---
Surgery/Procedure H&P Update DATE OF PROCEDURE: January 09, 2023 DATE H&P PERFORMED: 12/30/22 CHANGES TO PREVIOUS DOCUMENTATION: No changes PREOP DIAGNOSIS: Left foot Lisfranc fracture dislocation PLANNED PROCEDURE: Operation Date: 01/09/23 10:45 Proposed Procedures p Lisfranc fusion of first, second, third tarsometatarsal joints left foot CPT 84966, S93.326A(Left) - Jessee Smallwood DPM
[2023-01-09] MEDS: ceFAZolin 2,000 MG in sodium chloride 0.9% (plus) 50 ML 100 MG IV (11:35)
--- NOTE | 2023-01-09 13:06 | ANES.PROC ---
Anesthesia Procedures Procedure/Date: 01/09/23 Nerve Block ^: Nerve Block 1: Main Anesthesia: general anesthesia Time Out Performed: Yes Consent: requested by attending/covering physician, from patient, risks and benefits reviewed and patient agrees to proceed Nerve block location: popliteal (left) Anesthesia monitors applied: pulse oximetry, EKG, BP cuff and oxygen Nerve block position: supine Anesthetic Used: ropivicaine 0.5% Amount of anesthesia used (mL): 30 Ultrasound used to: recognize landmarks Interscalene/Femoral BLK: 4 stimuplex 21 g needle used for position and inplane approach Injection: neg aspiration of heme Patient Tolerated Procedure: well Additional Comments: Difficult block secondary to large leg and large Brewer's cyst in popliteal fossa.
--- NOTE | 2023-01-09 14:01 | XR_ITS ---
WS: [id number] Left foot, 3 views, 01/09/2023 Clinical Data: post op left foot Comparison: Left foot, 12/09/2022 Findings: There are fusions of the bases of the first, second and third metatarsals with the corresponding cune iforms with plates and screws. There is soft tissue swelling about the foot especially on the dorsal surface. There is a fiberglass posterior splint. XR/XR foot LT min 3V* [id number] Impression: Complex fusion of the articulations between the first 3 metacarpals and the cor responding cuneiforms of the left foot.
[2023-01-09] MEDS: hyDRALAzine 20 mg/mL INJ 1 mL 10 MG IVP (14:10)
--- NOTE | 2023-01-09 16:57 | ANE.PACU2 ---
Inpatient post-anesthesia follow up: Airway intact: Yes Vital signs: Temperature 97 F Pulse Rate 66 Respiratory Rate 16 Blood Pressure 98/66 Pulse Oximetry 97 Oxygen Delivery Me thod Room Air Oxygen Flow Rate 8 Fraction of Inspir ed Oxygen Hydration adequate: Yes Nausea and vomiting: No Pain level: 2 Mental status: Baseline
--- NOTE | 2023-01-09 17:15 | PM.OP ---
Operative Report Date of procedure: January 09, 2023 Pre-op diagnosis: Preop Diagnosis Left foot Lisfranc fracture dislocation Post-op diagnosis: Same Post-op findings: Left foot Lisfranc fracture dislocation of tarsometatarsal joints 1, 2, 3 Procedure done: Lisfranc arthrodesis of left first, second, third tarsometatarsal joint CPT 73496 Implants: Lapidus plate with 3.5 locking screws from [place] [employer], angulated T plate angulated straight plate from [place] 28 with 2.7 locking screw Surgeon: Dr. Jessee Smallwood, D.P.M. Estimated blood loss: Less than 10 cc Complications: None Findings: See above Procedure: Patient is a 77-year-old female that has a history of left foot Lisfranc fracture dislocation. The patient has had the aforementioned chief complaint for some time. Conservative treatment measures have been attempted and the patient has opted for surgical intervention at this time. A lengthy discussion regarding the procedure, including risks and complications has been had with the patient and is noted in the recent clinic note. Written and verbal consent have been obtained. All patient questions have been answered to the patient?s satisfaction. No written or verbal guarantees have been given or implied. The patient has been NPO since midnight. The history has been reviewed and the history and physical is current. The signed consent was confirmed and placed in the patient chart. Patient imaging has been reviewed and is consistent with the diagnosis. Under mild sedation, the patient was brought into the operating room and placed on the table in the supine position. IV antibiotics were given by the anesthesia team as preoperative surgical prophylaxis. General sedation was then performed by the anesthesiateam. A pneumatic tourniquet was then placed about the left thigh. The operative extremity was then prepped and draped in the usual fashion. The extremity was then elevated and exsanguinated before the tourniquet was inflated to 325 mmHg. After inflation, the following procedure was then performed. Attention was directed to the dorsal medial aspect of the left first tarsometatarsal joint. A 5 cm incision was made using a #15 blade. Dissection was carried down through subcutaneous and superficial fascia to the level of the first tarsometatarsal joint articulation. Dissection was carried out to expose the first tarsometatarsal joint. With the joint exposed, a sagittal bone saw was used to remove articular cartilage from the base of the first metatarsal and the articular surface of the medial cuneiform. These articular surfaces were removed from the foot using a rongeur. The arthrodesis site was then fenestrated using a fenestration drill bit. Next, a Lapidus plate from [place] 28 was used to fixate the first tarsometatarsal joint in preparation for arthrodesis. Good positioning of the plate was noted and 3.5 locking screws was used to fixate the plate in this appropriate position. Good positioning of the plate and screws was noted on C-arm imaging. Next, attention was directed to the dorsum of the foot. A 5 cm incision was made over the second intermetatarsal space using a #15 blade. Dissection was carried down through subcutaneous and superficial fascia. Care was taken to protect adjacent neurovascular bundle. Dissection was carried down to the level of the second and third tarsometatarsal joints. The joint capsule was incised to expose the joints. There was noted to be comminution at these joints consistent with Lisfranc fracture dislocation. A rongeur was used to prep these joints for arthrodesis. After removal of the articular cartilage, DBX bone void filler was used to backfill the voids in preparation for arthrodesis. An angulated straight plate was used to span the second tarsometatarsal joint articulation and was filled with 2.7 mm locking screws. An angulated T plate was then used to span the third tarsometatarsal joint articulation. This was then fixated with 2.7 mm locking screws. Good positioning of the plate and screws was noted on C-arm imaging as well as clinically. Next, the incisions were irrigated with copious amounts of sterile saline before attention was directed to closure. Deep tissue was closed with 2-0 Vicryl followed by subcuticular closure with 3-0 Vicryl and skin closure with 3-0 nylon in horizontal mattress fashion. The tourniquet was let down and good hyperemic response was noted all digits of the left foot. The incision sites were dressed with Xeroform, 4 x 4 gauze, Kerlix before being placed in a well-padded below the knee posterior splint. The patient tolerated the procedure and anesthesia well and without complication. The patient was transported from the operating room to the recovery room with vital signs stable and vascular status intact to all digits of the left foot. The patient was given both written and verbal instructions to remain nonweightbearing to the operative extremity, to keep dressings/splint clean, dry and intact and to take pain medication as directed. The patient will follow-up in the outpatient setting at their scheduled appointment. The patient was discharged with my personal number and was instructed to call if any questions or issues should arise. They were discharged home once anesthesia criteria was met.
== END 2023-01-09 15:46 | disposition home or self-care (01) ==
PROVIDERS: Anesthesiology; PCP Family Medicine; Visit Provider Podiatrist Foot & Ankle Surgery
PROC: (CPT 28730; principal; 2023-01-09 10:35)
DX: S93.322A Subluxation of tarsometatarsal joint of left foot, initial encounter (principal); X58.XXXA Exposure to other specified factors, initial encounter; Z79.01 Long term (current) use of anticoagulants; Z95.0 Presence of cardiac pacemaker; Z86.711 Personal history of pulmonary embolism; N18.9 Chronic kidney disease, unspecified; K21.9 Gastro-esophageal reflux disease without esophagitis; E11.22 Type 2 diabetes mellitus with diabetic chronic kidney disease; E11.40 Type 2 diabetes mellitus with diabetic neuropathy, unspecified; Z79.4 Long term (current) use of insulin; Z79.82 Long term (current) use of aspirin
CPT/HCPCS: 28730; 36416; 36592; 73630; 76000; 80048; 82962; 85025; C1713; C1762; C9290; J0131; J0360; J0690; J1100; J2370; J2405; J2704; J2795; J3010; J3490; J7030

== ENCOUNTER → 2023-01-23 14:10 | Outpatient (BNVA) | payer MEDICARE, OTHER, SELFPAY | PROVIDERS: PCP Family Medicine; Visit Provider Podiatrist Foot & Ankle Surgery | DX: E11.42 Type 2 diabetes mellitus with diabetic polyneuropathy (principal); G62.9 Polyneuropathy, unspecified; R60.9 Edema, unspecified; S93.322A Subluxation of tarsometatarsal joint of left foot, initial encounter; X58.XXXA Exposure to other specified factors, initial encounter; Z79.4 Long term (current) use of insulin | CPT/HCPCS: 73630; 99024 ==

== ENCOUNTER → 2023-01-28 10:57 | Outpatient (BNVA) | payer MEDICARE, OTHER, SELFPAY | PROVIDERS: PCP Family Medicine; Visit Provider Podiatrist Foot & Ankle Surgery | DX: S90.821A Blister (nonthermal), right foot, initial encounter (principal); X58.XXXA Exposure to other specified factors, initial encounter; E11.42 Type 2 diabetes mellitus with diabetic polyneuropathy; G62.9 Polyneuropathy, unspecified; R60.9 Edema, unspecified; Z79.4 Long term (current) use of insulin | CPT/HCPCS: 10140; 29580; 99024 ==

== ENCOUNTER 2023-02-05 15:42 | Emergency (ER) | payer MEDICARE, OTHER, SELFPAY ==
[2023-02-05 16:01] VITALS: BP 108/68; PULSE 63; TEMP 36.7; O2SAT 93; BMI 36.8
--- NOTE | 2023-02-05 16:13 | W.ED.EXTPRO ---
HPI - Extremity Problem General: Chief complaint: Extremity Injury, Lower Stated complaint: right leg lac Time Seen by Provider: 02/05/23 16:13 History of Present Illness: 77-year-old lady with complex history on anticoagulation presenting to the emergency department for concern over right lower extremity wound and left lower extremity swelling. Patient is postop from fairly significant foot surgery and yesterday noticed increased pain and swelling. Seen by podiatry today with mild concern for DVT. Additionally she has a history of frequent falls and hit her sin on something earlier this morning. Had bleeding which took an extensive amount of time to stop and was noted to be pale in clinic and referred to ED for further evaluation. No other specific changes in health, exacerbating, or alleviating factors identified. Onset (ago): hour(s) Associated symptoms: Reports no associated symptoms Review of Systems General: Reports: 10 or more systems reviewed and unremarkable except in HPI and below PFSH ED PFSH: Medical History Anticoagulated Arthritis Atrial fibrillation CKD (chronic kidney disease) stage 2, GFR 60-89 ml/min Congestive heart failure chronic diastolic. 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 Sleep apnea compliant with CPAP Tricuspid regurgitation Surgical History History of bunionectomy of right great toe History of cholecystectomy History of esophageal dilatation History of lumpectomy of left breast History of repair of right rotator cuff History of tonsillectomy History of ventral hernia repair Hx of cardiac pacemaker Hx of cataract extraction Hx of cornea transplant Hx of tubal ligation Hx of umbilical hernia repair Family History Mother CAD (coronary artery disease) Father Cancer lung (smoker) Grandfather Dementia Cancer Brother Diabetes Son Diabetes Daughter CAD (coronary artery disease) Grandmother CAD (coronary artery disease) Family/Other Chronic kidney disease (CKD) Denies family history of Clotting disorder Suicide Anesthesia complication Bleeding disorder Hypertension Stroke Social History Smoking and tobacco status: never smoked Alcohol intake: never Substance/Drug Use: never Lives independently: Yes Household members: spouse Marital status: Number of children: 3 Number of grandchildren: 4 Current occupational status: retired Physical Exam Const: COMMON NORMALS: alert GENERAL APPEARANCE: cooperative and well developed HENMT: COMMON NORMALS: normocephalic and atraumatic HEAD & SCALP: normocephalic and atraumatic Eye: COMMON NORMALS: conjunctivae normal CONJUNCTIVA: Yes conjunctivae normal SCLERA: sclerae normal Neck/C-Spine: COMMON NORMALS: supple GENERAL: Yes trachea midline Resp: COMMON NORMALS: clear to auscultation bilaterally EFFORT & INSPECTION: Yes able to speak in complete sentences AUSCULTATION: clear to auscultation bilaterally Cardio: COMMON NORMALS: regular rate and regular rhythm RATE: regular rate RHYTHM: regular rhythm GI: COMMON NORMALS: Soft to palpation PALPATION: Yes Soft to palpation and No Tenderness to palpation present (GI) Extremity: NARRATIVE EXTREMITY EXAM: LLE in post op splint. distal cms intact, no cellulitis, swelling R sin laceration with contusion/swelling/hematoma GENERAL: Yes normal exam except as noted and No edema Neuro: COMMON NORMALS: moves all extremities SENSORIUM/ORIENTATION: Yes alert and No Orientation impaired Psych: COMMON NORMALS: mental status grossly normal and Normal thought process present THOUGHT PROCESS: Normal thought process present Procedures Laceration Laceration 1: Site: lower extremity Side (If applicable): right Size (cm): 3 Description: flap and irregular Depth: simple, single layer Local Anesthetic: lidocaine 1% and with epi Amount of anesthesia used (mL): 2.5 Pre-repair: wound explored, irrigated extensively and deep structures intact Skin layer closed with: nylon Size (cm): 4-0 Number of sutures: 5 Technique: simple, interrupted Course Vital Signs: Vital signs: Vital Signs Temperature 98.1 F 02/05/23 16:01 Pulse Rate 63 02/05/23 16:01 Blood Pressure 108/68 02/05/23 16:01 Pulse Oximetry 93 02/05/23 16:01 Oxygen Delivery Me thod Room Air 02/05/23 16:01 MDM - Extremity (Nontraumatic) Medical Decision Making 77-year-old lady presenting with 2 separate concerns. She endorses a laceration with difficulty controlling bleeding though bleeding is controlled on exam. She also endorses concern for possible DVT. Nontoxic in appearance and vitally satisfactory. Hemoglobin is normal. DVT study is negative. Laceration repaired, given swelling and superficial skin layer margins are not completely aligned however repair does provide protection and hemostasis. The results of ED evaluation were discussed with the patient including prescriptions and/or symptomatic cares (if applicable) including appropriate and responsible use, followup plan, and return precautions. The patient verbalized understanding and felt safe for discharge. Medical Records I reviewed the patient's medical records. Lab Data I reviewed the patient's lab results. 02/05/23 16:21 Radiology Impressions Venous Duplex 02/05/23 16:21 IMPRESSION: 1. No sonographic evidence of deep vein thrombosis. 2. 4.4 x 1.9 x 4.2 cm popliteal cyst. Laboratory Results Hgb 12.8 g/dL (11.5-15.3) 02/05/23 16:21 Hct 40.4 % (37.0-47.0) 02/05/23 16:21 Discharge Plan Discharge Patient Disposition: Home Clinical Impression: Brewer's cyst, Laceration of leg, right Condition: Stable Prescriptions: No Action aspirin 81 mg tablet,delayed release (DR/EC) 81 mg PO DAILY potassium chloride 20 mEq tablet extended release 20 meq PO BID Qty: 60 5RF Xarelto 20 mg tablet 20 mg PO DAILY Rx Instructions: must administer with evening meal hydrocodone-acetaminophen 5-325 mg tablet 1 tab PO Q6H PRN (Reason: pain) 7 Days Qty: 28 0RF (DME) CAM boot 8 See Rx Instructions .Route .MEDSUPPLY Qty: 1 0RF Rx Instructions: As directed / non weight bearing (DME) wheelchair See Rx Instructions .Route .MEDSUPPLY Qty: 1 0RF Rx Instructions: As directed Novolin 70/30 U-100 Insulin 100 unit/mL (70-30) suspension 25 unit SUBCUT BID torsemide 20 mg tablet 40 mg PO QAM PRN (Reason: edema) Qty: 60 0RF lisinopril 5 mg tablet 5 mg PO DAILY Qty: 90 3RF pioglitazone 30 mg tablet 30 mg PO DAILY 90 Days Qty: 90 0RF (DME) insulin syringe-needle U-100 [BD Insulin Syringe] 1 mL 29 gauge x 1/2 syringe See Rx Instructions .Route Qty: 500 0RF Rx Instructions: Inject insulin, twice, daily. atorvastatin 80 mg tablet 80 mg PO DAILY Qty: 30 0RF sertraline 100 mg tablet See Rx Instructions .ROUTE .COMPLEX Qty: 30 0RF Dose Instruction: Take 1 tablet by mouth once daily Rx Instructions: Take 1 tablet by mouth once daily pantoprazole 40 mg tablet,delayed release (DR/EC) See Rx Instructions .ROUTE .COMPLEX Qty: 30 0RF Dose Instruction: Take 1 tablet by mouth once daily Rx Instructions: Take 1 tablet by mouth once daily pregabalin 150 mg capsule See Rx Instructions .ROUTE .COMPLEX Qty: 90 0RF Rx Instructions: 1 cap po qam & 2 cap po qpm metoprolol succinate 50 mg tablet extended release 24 hr 50 mg PO DAILY Discharge Orders: Discharge ED (Routine); Ordered 02/05/23 Ordered By: Cassius Thacker Referrals: Josefa Smith MD [Primary Care Provider] - Discharge Diet: Usual diet Discharge Activity: Limit activity as instructed Patient Instructions: Care For Your Stitches (ED), Laceration (ED), Brewer Cyst (ED) Activity Restrictions/Additional Instructions: Thank you for visiting the emergency department. You were seen and evaluated for laceration and concern for DVT. No evidence of DVT was found. Laceration was repaired with stitches which require removal in 10 days. Please keep the area clean and dry and watch for signs of infection. Please follow all instructions given by previous physicians including podiatry. Return to the emergency department for signs of infection, uncontrolled pain or bleeding, or anything else that you are concerned about and feel needs emergency department evaluation Coding Level of Care Code ED Spinner Hand for Alberto Shetty
--- NOTE | 2023-02-05 16:21 | USR_ITS ---
PROCEDURE INFORMATION: Exam: US Duplex Left Lower Extremity Veins, Limited Exam date and time: 02/05/2023 5:08 PM Age: 77 years old Clinical indication: Pain; Leg, lower; Left; Prior surgery; Surgery date: <1 month; Surgery type: Broken foot; Additional info: Post op swelling/pain TECHNIQUE: Imaging protocol: Real-time duplex ultrasound of the left extremity with 2-D arteaga scale, color Doppler flow and spectral waveform analysis including responses to compression and other maneuvers (when performed) with image documentation. Limited exam focused on the left lower extremity veins. COMPARISON: CT foot LT wo con* [id number] 12/23/2022 3:33 PM FINDINGS: Left deep veins: Unremarkable. The common femoral, femoral, proximal profunda femoral popliteal, posterior tibial and peroneal veins are patent without thrombus. Normal compressibility, augmentation response and Doppler waveforms. Left superficial veins: Unremarkable. Saphenofemoral junction is patent without thrombus. Soft tissues: 4.4 x 1.9 x 4.2 cm popliteal cyst. US/CV venous duplex [facility] [id number] IMPRESSION: 1. No sonographic evidence of deep vein thrombosis. 2. 4.4 x 1.9 x 4.2 cm popliteal cyst.
[2023-02-05 16:27] LABS: Hematocrit 40.4 % (37.0-47.0); Hemoglobin 12.8 g/dL (11.5-15.3)
[2023-02-05] MEDS: tetanus-dipt-pertussis 0.5 mL SDV IM (17:33)
[2023-02-05] MEDS: lidocaine-epi 1% 20 mL INJ INJECTION (17:37)
== END 2023-02-05 18:24 | disposition home or self-care (01) ==
PROVIDERS: Emergency Provider Emergency Medicine; PCP Family Medicine
DX: S81.811A Laceration without foreign body, right lower leg, initial encounter (principal); W22.8XXA Striking against or struck by other objects, initial encounter; M71.21 Synovial cyst of popliteal space [Baker], right knee; Z79.01 Long term (current) use of anticoagulants; Z91.81 History of falling; Z23 Encounter for immunization; M79.89 Other specified soft tissue disorders; Z98.890 Other specified postprocedural states; R53.1 Weakness; I95.9 Hypotension, unspecified
CPT/HCPCS: 12002; 36415; 85014; 85018; 90471; 90715; 93971; 99024; 99284

== ENCOUNTER 2023-02-05 16:01 | Outpatient (CLI) | payer MEDICARE, OTHER, SELFPAY | END 2023-02-05 16:02 | disposition home or self-care (01) | LOC: SPT 16:06 | PROVIDERS: PCP Family Medicine; Visit Provider Podiatrist Foot & Ankle Surgery | DX: Z46.89 Encounter for fitting and adjustment of other specified devices (principal); Z98.890 Other specified postprocedural states | CPT/HCPCS: 97760; L4361 ==

== ENCOUNTER → 2023-02-19 15:17 | Outpatient (BNVA) | payer MEDICARE, OTHER, SELFPAY | PROVIDERS: PCP Family Medicine; Visit Provider Podiatrist Foot & Ankle Surgery | DX: M79.672 Pain in left foot (principal); Z98.890 Other specified postprocedural states | CPT/HCPCS: 73630; 99024 ==

== ENCOUNTER 2023-03-04 09:52 | Outpatient (RCR) | payer MEDICARE, OTHER, SELFPAY | END 2023-03-17 23:59 | disposition home or self-care (01) | LOC: SPT 09:52 | PROVIDERS: PCP Family Medicine; Visit Provider Podiatrist Foot & Ankle Surgery | DX: S93.325D Dislocation of tarsometatarsal joint of left foot, subsequent encounter (principal); X58.XXXD Exposure to other specified factors, subsequent encounter | CPT/HCPCS: 97110; 97163 ==

== ENCOUNTER → 2023-03-05 14:48 | Outpatient (BNVA) | payer MEDICARE, OTHER, SELFPAY | PROVIDERS: PCP Family Medicine; Visit Provider Podiatrist Foot & Ankle Surgery | DX: Z98.890 Other specified postprocedural states (principal) | CPT/HCPCS: 99024 ==

== ENCOUNTER 2023-03-18 06:00 | Outpatient (RCR) | payer MEDICARE, OTHER, SELFPAY | END 2023-04-17 23:59 | disposition home or self-care (01) | LOC: SPT 06:00 | PROVIDERS: PCP Family Medicine; Visit Provider Podiatrist Foot & Ankle Surgery | DX: S93.325D Dislocation of tarsometatarsal joint of left foot, subsequent encounter (principal); X58.XXXD Exposure to other specified factors, subsequent encounter | CPT/HCPCS: 97110 ==

== ENCOUNTER → 2023-03-26 14:00 | Outpatient (BNVA) | payer MEDICARE, OTHER, SELFPAY | PROVIDERS: PCP Family Medicine; Visit Provider Podiatrist Foot & Ankle Surgery | DX: E11.42 Type 2 diabetes mellitus with diabetic polyneuropathy; Z98.890 Other specified postprocedural states; E11.621 Type 2 diabetes mellitus with foot ulcer; L89.610 Pressure ulcer of right heel, unstageable; Z79.4 Long term (current) use of insulin | CPT/HCPCS: 99213 ==

== ENCOUNTER 2023-03-31 09:39 | Outpatient (CLI) | payer MEDICARE, OTHER, SELFPAY ==
[2023-03-31 11:00] LABS: Estmated Average Glucose 301; Hemoglobin A1C 12.1 % (4.0-6.0)
[2023-03-31 11:02] LABS: Alanine Aminotransferase 16 U/L (0-33); Albumin Level 3.8 g/dL (3.5-5.2); Alkaline Phosphatase 133 U/L (35-105); Anion Gap 13.5 (5-19); Aspartate Amino Transferase 18 U/L (0-32); Blood Urea Nitrogen 46 mg/dL (8-23); Calcium 9.1 mg/dL (8.5-10.5); Carbon Dioxide 30 mmol/L (22-29); Chloride 98 mmol/L (98-107); Chol HDL Ratio 3.14 mg/dL (0.0-4.40); Cholesterol 182 mg/dL (0-200); Globulin 3.4 g/dL (1.3-4.6); Glucose 307 mg/dL (65-115); HDL Cholesterol 58 mg/dL (60-100); LDL Cholesterol Calculated 61 mg/dL (50-129); LDL HDL Ratio 1.05 RATIO (0.00-3.22); Osmolality Calculated 307 mOsm/kg (285-295); Potassium 4.5 mmol/L (3.5-5.1); Sodium 137 mmol/L (136-145); Total Bilirubin 0.8 mg/dL (0.15-1.2); Total Protein 7.2 g/dL (6.6-8.7); Triglycerides 316 mg/dL (0-150)
[2023-03-31 11:16] LABS: Creatinine Urine, Random 97 mg/dL (28-217); Microalbum Creatinine Ratio Ur 10 mg/dL (0-20); Microalbumin Random Urine 1 ug/dL (0-20)
== END 2023-03-31 09:40 | disposition home or self-care (01) ==
LOC: LAB 09:43
PROVIDERS: PCP Family Medicine; Visit Provider Internal Medicine
DX: E11.42 Type 2 diabetes mellitus with diabetic polyneuropathy (principal); E11.22 Type 2 diabetes mellitus with diabetic chronic kidney disease; I13.0 Hypertensive heart and chronic kidney disease with heart failure and stage 1 through stage 4 chronic kidney disease, or unspecified chronic kidney disease; E78.5 Hyperlipidemia, unspecified; M81.0 Age-related osteoporosis without current pathological fracture; N18.2 Chronic kidney disease, stage 2 (mild); I50.32 Chronic diastolic (congestive) heart failure; Z79.899 Other long term (current) drug therapy; Z79.4 Long term (current) use of insulin; E11.65 Type 2 diabetes mellitus with hyperglycemia; I50.9 Heart failure, unspecified
CPT/HCPCS: 36415; 80053; 80061; 82044; 83036; 99214

== ENCOUNTER → 2023-04-03 11:28 | Outpatient (BNVA) | payer MEDICARE, OTHER, SELFPAY | PROVIDERS: PCP Family Medicine; Visit Provider Podiatrist Foot & Ankle Surgery | DX: E11.42 Type 2 diabetes mellitus with diabetic polyneuropathy; Z98.890 Other specified postprocedural states; E11.621 Type 2 diabetes mellitus with foot ulcer; L97.412 Non-pressure chronic ulcer of right heel and midfoot with fat layer exposed; Z79.4 Long term (current) use of insulin | CPT/HCPCS: 99213 ==

== ENCOUNTER → 2023-04-14 15:04 | Outpatient (BNVA) | payer MEDICARE, OTHER, SELFPAY | PROVIDERS: PCP Family Medicine; Visit Provider Internal Medicine | DX: E11.42 Type 2 diabetes mellitus with diabetic polyneuropathy (principal); B35.1 Tinea unguium; E78.5 Hyperlipidemia, unspecified; M81.0 Age-related osteoporosis without current pathological fracture; I50.9 Heart failure, unspecified; Z79.4 Long term (current) use of insulin; Z79.84 Long term (current) use of oral hypoglycemic drugs | CPT/HCPCS: 11721; 99214 ==

== ENCOUNTER → 2023-04-15 13:02 | Outpatient (BNVA) | payer MEDICARE, OTHER, SELFPAY | PROVIDERS: PCP Family Medicine; Visit Provider Nurse Practitioner Family | DX: E11.52 Type 2 diabetes mellitus with diabetic peripheral angiopathy with gangrene (principal); L97.411 Non-pressure chronic ulcer of right heel and midfoot limited to breakdown of skin | CPT/HCPCS: 97597; 99213; A6251 ==

== ENCOUNTER → 2023-04-22 15:25 | Outpatient (BNVA) | payer MEDICARE, OTHER, SELFPAY | PROVIDERS: PCP Family Medicine; Visit Provider Nurse Practitioner Family | DX: E11.52 Type 2 diabetes mellitus with diabetic peripheral angiopathy with gangrene (principal); L97.419 Non-pressure chronic ulcer of right heel and midfoot with unspecified severity | CPT/HCPCS: 97597; A6210 ==

== ENCOUNTER → 2023-04-23 14:16 | Outpatient (BNVA) | payer MEDICARE, OTHER, SELFPAY | PROVIDERS: PCP Family Medicine; Visit Provider Family Medicine | DX: R13.10 Dysphagia, unspecified (principal); L98.9 Disorder of the skin and subcutaneous tissue, unspecified; R60.0 Localized edema; E11.42 Type 2 diabetes mellitus with diabetic polyneuropathy; E78.5 Hyperlipidemia, unspecified; I50.9 Heart failure, unspecified; M81.0 Age-related osteoporosis without current pathological fracture; Z87.19 Personal history of other diseases of the digestive system | CPT/HCPCS: 80048; 80053; 80061; 82043; 83036; 83880 ==

== ENCOUNTER 2023-04-28 06:00 | Outpatient (RCR) | payer MEDICARE, OTHER, SELFPAY | END 2023-05-17 23:59 | disposition home or self-care (01) | LOC: SPT 06:00 | PROVIDERS: PCP Family Medicine; Visit Provider Podiatrist Foot & Ankle Surgery | DX: S93.325D Dislocation of tarsometatarsal joint of left foot, subsequent encounter (principal); X58.XXXD Exposure to other specified factors, subsequent encounter | CPT/HCPCS: 97110 ==

== ENCOUNTER 2023-04-28 12:56 | Outpatient (CLI) | payer MEDICARE, OTHER, SELFPAY ==
[2023-04-28 13:52] LABS: Blood Urea Nitrogen 62 mg/dL (8-23); Calcium 8.9 mg/dL (8.5-10.5); Carbon Dioxide 28 mmol/L (22-29); Chloride 95 mmol/L (98-107); Glucose 337 mg/dL (65-115); Osmolality Calculated 311 mOsm/kg (285-295); Sodium 135 mmol/L (136-145)
== END 2023-04-28 12:57 | disposition home or self-care (01) ==
PROVIDERS: PCP Family Medicine; Visit Provider Family Medicine
DX: R60.0 Localized edema (principal); E11.40 Type 2 diabetes mellitus with diabetic neuropathy, unspecified; E78.5 Hyperlipidemia, unspecified; M81.0 Age-related osteoporosis without current pathological fracture; I11.0 Hypertensive heart disease with heart failure; I50.9 Heart failure, unspecified; Z79.84 Long term (current) use of oral hypoglycemic drugs; Z79.4 Long term (current) use of insulin; Z95.0 Presence of cardiac pacemaker; I48.91 Unspecified atrial fibrillation
CPT/HCPCS: 80048; 99214

== ENCOUNTER → 2023-04-29 14:33 | Outpatient (BNVA) | payer MEDICARE, OTHER, SELFPAY | PROVIDERS: PCP Family Medicine; Visit Provider Nurse Practitioner Family | DX: E11.52 Type 2 diabetes mellitus with diabetic peripheral angiopathy with gangrene (principal); L97.412 Non-pressure chronic ulcer of right heel and midfoot with fat layer exposed | CPT/HCPCS: 97597; A6210; A6251 ==

== ENCOUNTER → 2023-05-06 17:03 | Outpatient (BNVA) | payer MEDICARE, OTHER, SELFPAY | PROVIDERS: PCP Family Medicine; Visit Provider Nurse Practitioner Family | DX: E11.52 Type 2 diabetes mellitus with diabetic peripheral angiopathy with gangrene (principal); L97.411 Non-pressure chronic ulcer of right heel and midfoot limited to breakdown of skin | CPT/HCPCS: 97597 ==

== ENCOUNTER 2023-05-12 15:10 | Outpatient (CLI) | payer MEDICARE, OTHER, SELFPAY ==
--- NOTE | 2023-05-12 15:30 | XR_ITS ---
WS: [id number] SCREENING DEXA SCAN [employer] CLINICAL INFORMATION: osteoporosis COMPARISON: None. FINDINGS: The L1-L4 bone mineral density measures 1.151 g/cm2. This corresponds to a T score score of -0.2 and Z score of 0.4. Left femoral neck bone mineral density measures 0.954 g/cm2. This corresponds to a T score of -0.4 an d Z score of 0.5. Right femoral neck bone mineral density measures 0.961 g/cm2. This corresponds to a T score -0.4of an d Z score of 0.6. Mean femoral neck bone mineral density measures 0.958 g/cm2. This corresponds to a T score of -0.4 an d Z score of 0.5. IMPRESSION: Normal bone mineralization. Patient's FRAX calculated 10 year probability for major osteoporotic fracture is 8.8% and osteoporoti c hip fracture is 1.3%.
== END 2023-05-12 15:11 | disposition home or self-care (01) ==
PROVIDERS: PCP Family Medicine; Visit Provider Internal Medicine
DX: M81.0 Age-related osteoporosis without current pathological fracture (principal); B35.1 Tinea unguium; E11.42 Type 2 diabetes mellitus with diabetic polyneuropathy; L89.610 Pressure ulcer of right heel, unstageable; Z98.890 Other specified postprocedural states; Z79.4 Long term (current) use of insulin
CPT/HCPCS: 77080; 99204; 99213

== ENCOUNTER → 2023-05-13 13:39 | Outpatient (BNVA) | payer MEDICARE, OTHER, SELFPAY | PROVIDERS: PCP Family Medicine; Visit Provider Nurse Practitioner Family | DX: E11.52 Type 2 diabetes mellitus with diabetic peripheral angiopathy with gangrene (principal); L97.411 Non-pressure chronic ulcer of right heel and midfoot limited to breakdown of skin | CPT/HCPCS: 97597; A6210; A6251 ==

== ENCOUNTER 2023-05-18 06:00 | Outpatient (RCR) | payer MEDICARE, OTHER, SELFPAY | END 2023-06-10 23:59 | disposition home or self-care (01) | LOC: SPT 06:00 | PROVIDERS: PCP Family Medicine; Visit Provider Podiatrist Foot & Ankle Surgery | DX: S93.325D Dislocation of tarsometatarsal joint of left foot, subsequent encounter (principal); X58.XXXD Exposure to other specified factors, subsequent encounter | CPT/HCPCS: 97110 ==

== ENCOUNTER → 2023-05-27 14:45 | Outpatient (BNVA) | payer MEDICARE, OTHER, SELFPAY | PROVIDERS: PCP Family Medicine; Visit Provider Nurse Practitioner Family | DX: E11.52 Type 2 diabetes mellitus with diabetic peripheral angiopathy with gangrene (principal); L97.411 Non-pressure chronic ulcer of right heel and midfoot limited to breakdown of skin | CPT/HCPCS: 97597; A6212 ==

== ENCOUNTER → 2023-06-03 14:35 | Outpatient (BNVA) | payer MEDICARE, OTHER, SELFPAY | PROVIDERS: PCP Family Medicine; Visit Provider Nurse Practitioner Family | DX: E11.52 Type 2 diabetes mellitus with diabetic peripheral angiopathy with gangrene (principal); E11.622 Type 2 diabetes mellitus with other skin ulcer; L97.411 Non-pressure chronic ulcer of right heel and midfoot limited to breakdown of skin | CPT/HCPCS: 97597 ==

== ENCOUNTER → 2023-06-10 13:46 | Outpatient (BNVA) | payer MEDICARE, OTHER, SELFPAY | PROVIDERS: PCP Family Medicine; Visit Provider Nurse Practitioner Family | DX: Z09 Encounter for follow-up examination after completed treatment for conditions other than malignant neoplasm (principal); Z87.2 Personal history of diseases of the skin and subcutaneous tissue | CPT/HCPCS: 99212; A6212 ==

== ENCOUNTER 2023-06-11 11:25 | Emergency (ER) | payer MEDICARE, OTHER, SELFPAY ==
--- NOTE | 2023-06-11 11:26 | XR_ITS ---
WS: [id number] Exam: XR shoulder RT min 2V* [id number] Date/Time of Exam: 06/11/2023 11:26 AM Reason For Exam: injury No acute fracture or dislocation. High riding humeral head probably indicates longstanding tear of th e rotator cuff. Minimal degenerative change of the AC joint and humeral head. Subacromial bone spurri ng. IMPRESSION: 1. No acute fracture. 2. Degenerative changes as discussed above.
[2023-06-11 11:46] VITALS: BP 174/90; PULSE 77; RESP 18; TEMP 36.8; O2SAT 94; BMI 36.8
--- NOTE | 2023-06-11 11:52 | W.ED.EXTPRO ---
HPI - Extremity Problem General: Chief complaint: Extremity Problem,Nontraumatic Stated complaint: right shoulder pain Time Seen by Provider: 06/11/23 11:33 Source: patient Mode of arrival: ambulatory Limitations: no limitations History of Present Illness: Patient is a 77-year-old female presents to ED today with a complaint of right shoulder pain. Patient states she chronically has pain in the right shoulder but states approximately 3 to 4 days ago she woke up with worsening shoulder pain. No acute injury or trauma noted. She feels like pain is worse with range of motion. She states pain is localized to her shoulder joint itself and does not extend into the right upper extremity limb. She has not noticed any color or temperature changes to the limb. She denies numbness, tingling, loss of sensation, or weakness. Denies neck pain. MD Complaint: joint pain Onset (ago): day(s) (chronically has had pain for years; worse over the past few days) Pain Consistency: constant Location: right and upper extremity Radiation: none Relieving factors: immobilization Exacerbating factors: range of motion Associated symptoms: Reports no associated symptoms; Deny chest pain, fever(s) or rash Review of Systems Const: Denies: fever(s), chills, body aches, fatigue or malaise Card: Denies: chest pain Resp: Denies: dyspnea Musc: Reports: joint pain (R shoulder) and limited range of motion (R shoulder secondary to pain); Denies: neck pain, back pain, extremity pain, extremity swelling, joint swelling, joint redness or joint warmth Skin/Breast: Denies: rash Neuro: Denies: headache(s), numbness in extremities, weakness in extremities or sensory changes PFSH ED PFSH: Medical History Anticoagulated Arthritis Atrial fibrillation CKD (chronic kidney disease) stage 2, GFR 60-89 ml/min Congestive heart failure chronic diastolic. 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 Sleep apnea compliant with CPAP Tricuspid regurgitation Surgical History History of bunionectomy of right great toe History of cholecystectomy History of esophageal dilatation History of lumpectomy of left breast History of repair of right rotator cuff History of tonsillectomy History of ventral hernia repair Hx of cardiac pacemaker Hx of cataract extraction Hx of cornea transplant Hx of tubal ligation Hx of umbilical hernia repair Family History Mother CAD (coronary artery disease) Father Cancer lung (smoker) Grandfather Dementia Cancer Brother Diabetes Son Diabetes Daughter CAD (coronary artery disease) Grandmother CAD (coronary artery disease) Family/Other Chronic kidney disease (CKD) Denies family history of Clotting disorder Suicide Anesthesia complication Bleeding disorder Hypertension Stroke Social History Smoking and tobacco/nicotine status: never used tobacco/nicotine Alcohol intake: never Substance/Drug Use: never Lives independently: Yes Household members: spouse Marital status: Number of children: 3 Number of grandchildren: 4 Current occupational status: retired Physical Exam Const: COMMON NORMALS: no acute distress, patient oriented x3, alert and well nourished Neck/C-Spine: COMMON NORMALS: full ROM and no lymphadenopathy GENERAL: Yes normal visual inspection CERVICAL SPINE: Yes cervical ROM normal, No pain with cervical ROM, No Cervical spine tenderness, No step off deformity and No Paracervical muscle tenderness Chest: COMMONS NORMALS: normal inspection of the chest Resp: COMMON NORMALS: normal respiratory effort Cardio: COMMON NORMALS: regular rate and regular rhythm RATE: regular rate RHYTHM: regular rhythm Back/Pelvis: COMMON NORMALS: thoracic and lumbar spine normal to inspection, no thoracic nor lumbar tenderness and thoraco-lumbar ROM normal Extremity: COMMON NORMALS: normal to inspection, capillary refill normal, no joint enlargement, no clubbing, cyanosis or edema and no pedal edema GENERAL: Yes normal exam except as noted RIGHT UPPER EXTREMITY: Yes shoulder joint (TTP anterior/superior aspect R shoudler) Right shoulder: Yes Right shoulder joint inspection exam (normal gross inspection), Yes Right shoulder joint ROM exam (limited active ROM; better with passive manipulation but still painful) and Yes Right shoulder joint neurovascular exam (normal) OTHER: radial pulse palpated, cap refill normal, normal sensation Neuro: COMMON NORMALS: patient oriented x3, moves all extremities, no focal motor deficits and no sensory deficits noted SENSORIUM/ORIENTATION: Yes alert Course Vital Signs: Vital signs: Vital Signs Temperature 98.3 F 06/11/23 11:46 Pulse Rate 77 06/11/23 11:46 Respiratory Rate 18 06/11/23 11:46 Blood Pressure 174/90 06/11/23 11:46 Pulse Oximetry 94 06/11/23 11:46 Oxygen Delivery Me thod Room Air 06/11/23 11:46 MDM - Extremity (Nontraumatic) Medical Decision Making XR showing degenerative changes. She was given IM steroids here. Will place on steroids and anti-inflammatories at home. Sling for comfort. Recommend continuing passive movements. Recommend follow-up with primary care next week if symptoms do not seem to be improving. All radiology interpretation(s) finalized by discharge Discharge Plan Discharge Patient Disposition: Home Clinical Impression: Chronic right shoulder pain Condition: Stable Prescriptions: New Medrol (Xavier) 4 mg tablets,dose pack See Rx Instructions .ROUTE .COMPLEX Qty: 21 0RF Rx Instructions: orally per package directions ibuprofen 600 mg tablet 600 mg PO Q8H PRN (Reason: pain) Qty: 20 0RF No Action aspirin 81 mg tablet,delayed release (DR/EC) 81 mg PO DAILY potassium chloride 20 mEq tablet extended release 20 meq PO BID Qty: 60 5RF Xarelto 20 mg tablet 20 mg PO DAILY Rx Instructions: must administer with evening meal pregabalin 100 mg capsule See Rx Instructions PO BID Qty: 180 0RF Rx Instructions: 1 in am and 2 in pm (DME) CAM boot 8 See Rx Instructions .Route .MEDSUPPLY Qty: 1 0RF Rx Instructions: As directed / non weight bearing Santyl 250 unit/gram ointment 1 applic topical DAILY Qty: 90 0RF (DME) wheelchair See Rx Instructions .Route .MEDSUPPLY Qty: 1 0RF Rx Instructions: As directed pantoprazole 40 mg tablet,delayed release (DR/EC) See Rx Instructions .ROUTE .COMPLEX Qty: 90 1RF Dose Instruction: Take 1 tablet by mouth once daily Rx Instructions: Take 1 tablet by mouth once daily atorvastatin 80 mg tablet 80 mg PO DAILY Qty: 90 1RF lisinopril 5 mg tablet 5 mg PO DAILY Qty: 90 3RF (DME) insulin syringe-needle U-100 [BD Insulin Syringe] 1 mL 29 gauge x 1/2 syringe See Rx Instructions .Route Qty: 500 0RF Rx Instructions: Inject insulin, twice, daily. torsemide 20 mg tablet 40 mg PO QAM PRN (Reason: edema) Qty: 60 3RF metoprolol succinate 50 mg tablet extended release 24 hr See Rx Instructions .ROUTE .COMPLEX Qty: 90 0RF Dose Instruction: Take 1 tablet by mouth once daily Rx Instructions: Take 1 tablet by mouth once daily (DME) Prafo boot or similar to the right See Rx Instructions .Route .MEDSUPPLY Qty: 1 0RF Rx Instructions: As directed HOME Novolin 70/30 U-100 Insulin 100 unit/mL (70-30) suspension 50 unit SUBCUT BID 90 Days Qty: 90 0RF sertraline 100 mg tablet See Rx Instructions .ROUTE .COMPLEX Qty: 30 2RF Dose Instruction: Take 1 tablet by mouth once daily Rx Instructions: Take 1 tablet by mouth once daily Discharge Orders: Discharge ED (Routine); Ordered 06/11/23 Ordered By: Luisa Ball Referrals: Josefa Smith MD [Primary Care Provider] - Patient Instructions: Shoulder Pain (ED) Activity Restrictions/Additional Instructions: As we discussed please follow up with primary care next week if symptoms do not seem to be improving. Coding Level of Care Code ED Supervisor [employer] for Alberto Shetty
[2023-06-11] MEDS: dexamethasone 10 mg/mL INJ 8 MG IM (12:48)
== END 2023-06-11 13:02 | disposition home or self-care (01) ==
PROVIDERS: Emergency Provider Physician Assistant; PCP Family Medicine
DX: G89.29 Other chronic pain (principal); M25.511 Pain in right shoulder; Z79.82 Long term (current) use of aspirin; Z79.4 Long term (current) use of insulin; E11.22 Type 2 diabetes mellitus with diabetic chronic kidney disease; I13.0 Hypertensive heart and chronic kidney disease with heart failure and stage 1 through stage 4 chronic kidney disease, or unspecified chronic kidney disease; N18.2 Chronic kidney disease, stage 2 (mild); I50.9 Heart failure, unspecified; E11.42 Type 2 diabetes mellitus with diabetic polyneuropathy; Z85.3 Personal history of malignant neoplasm of breast; E78.5 Hyperlipidemia, unspecified; Z95.0 Presence of cardiac pacemaker
CPT/HCPCS: 73030; 96372; 99284; J1100

== ENCOUNTER → 2023-06-20 09:59 | Outpatient (BNVA) | payer MEDICARE, OTHER, SELFPAY | PROVIDERS: PCP Family Medicine; Visit Provider Podiatrist Foot & Ankle Surgery | DX: B35.1 Tinea unguium (principal); E11.42 Type 2 diabetes mellitus with diabetic polyneuropathy; Z98.890 Other specified postprocedural states; M25.372 Other instability, left ankle; Z79.4 Long term (current) use of insulin | CPT/HCPCS: 11721; 99213 ==

== ENCOUNTER 2023-08-27 15:29 | Outpatient (CLI) | payer MEDICARE, OTHER, SELFPAY ==
[2023-08-27 16:53] LABS: Estmated Average Glucose 272; Hemoglobin A1C 11.1 % (4.0-6.0)
[2023-08-27 17:18] LABS: Alanine Aminotransferase 23 U/L (0-33); Albumin Level 3.8 g/dL (3.5-5.2); Alkaline Phosphatase 108 U/L (35-105); Anion Gap 13.3 (5-19); Aspartate Amino Transferase 25 U/L (0-32); Blood Urea Nitrogen 28 mg/dL (8-23); Calcium 9.5 mg/dL (8.5-10.5); Carbon Dioxide 29 mmol/L (22-29); Chloride 99 mmol/L (98-107); Chol HDL Ratio 2.97 mg/dL (0.0-4.40); Cholesterol 172 mg/dL (0-200); Globulin 3.9 g/dL (1.3-4.6); Glucose 316 mg/dL (65-115); HDL Cholesterol 58 mg/dL (60-100); LDL Cholesterol Calculated 78 mg/dL (50-129); LDL HDL Ratio 1.34 RATIO (0.00-3.22); Osmolality Calculated 302 mOsm/kg (285-295); Potassium 4.3 mmol/L (3.5-5.1); Sodium 137 mmol/L (136-145); Total Bilirubin 1.3 mg/dL (0.15-1.2); Total Protein 7.7 g/dL (6.6-8.7); Triglycerides 179 mg/dL (0-150)
[2023-08-27 17:38] LABS: Creatinine Urine, Random 207 mg/dL (28-217); Microalbum Creatinine Ratio Ur 14 mg/dL (0-20); Microalbumin Random Urine 3 ug/dL (0-20)
== END 2023-08-27 15:30 | disposition home or self-care (01) ==
LOC: LAB 15:33
PROVIDERS: PCP Family Medicine; Visit Provider Internal Medicine
DX: E11.42 Type 2 diabetes mellitus with diabetic polyneuropathy (principal); E11.9 Type 2 diabetes mellitus without complications; E78.5 Hyperlipidemia, unspecified
CPT/HCPCS: 36415; 80053; 80061; 82044; 83036

== ENCOUNTER → 2023-08-29 11:26 | Outpatient (BNVA) | payer MEDICARE, OTHER, SELFPAY | PROVIDERS: PCP Family Medicine; Visit Provider Internal Medicine | DX: E11.42 Type 2 diabetes mellitus with diabetic polyneuropathy (principal); E78.5 Hyperlipidemia, unspecified; M81.0 Age-related osteoporosis without current pathological fracture; I50.9 Heart failure, unspecified; E11.40 Type 2 diabetes mellitus with diabetic neuropathy, unspecified; Z79.4 Long term (current) use of insulin | CPT/HCPCS: 99214 ==

== ENCOUNTER → 2023-09-16 14:31 | Outpatient (BNVA) | payer MEDICARE, OTHER, SELFPAY | PROVIDERS: PCP Family Medicine; Visit Provider Podiatrist Foot & Ankle Surgery | DX: B35.1 Tinea unguium (principal); E11.42 Type 2 diabetes mellitus with diabetic polyneuropathy; Z98.890 Other specified postprocedural states; M25.372 Other instability, left ankle; Z79.4 Long term (current) use of insulin | CPT/HCPCS: 11721 ==

== ENCOUNTER → 2023-11-11 11:18 | Outpatient (BNVA) | payer MEDICARE, OTHER, SELFPAY | PROVIDERS: PCP Family Medicine; Visit Provider Internal Medicine Cardiovascular Disease | DX: I13.0 Hypertensive heart and chronic kidney disease with heart failure and stage 1 through stage 4 chronic kidney disease, or unspecified chronic kidney disease (principal); E11.22 Type 2 diabetes mellitus with diabetic chronic kidney disease; N18.2 Chronic kidney disease, stage 2 (mild); Z79.4 Long term (current) use of insulin; I50.9 Heart failure, unspecified; Z95.0 Presence of cardiac pacemaker; I48.21 Permanent atrial fibrillation; E78.2 Mixed hyperlipidemia; Z79.01 Long term (current) use of anticoagulants; Z86.711 Personal history of pulmonary embolism | CPT/HCPCS: 99214 ==

== ENCOUNTER → 2023-12-16 13:59 | Outpatient (BNVA) | payer MEDICARE, OTHER, SELFPAY | PROVIDERS: PCP Family Medicine; Visit Provider Podiatrist Foot & Ankle Surgery | DX: B35.1 Tinea unguium (principal); E11.42 Type 2 diabetes mellitus with diabetic polyneuropathy; Z98.890 Other specified postprocedural states; M25.372 Other instability, left ankle; Z79.4 Long term (current) use of insulin | CPT/HCPCS: 11721 ==

== ENCOUNTER → 2024-01-02 14:03 | Outpatient (BNVA) | payer MEDICARE, OTHER, SELFPAY | PROVIDERS: PCP Family Medicine; Visit Provider Internal Medicine | DX: E11.42 Type 2 diabetes mellitus with diabetic polyneuropathy (principal); E78.2 Mixed hyperlipidemia; M81.0 Age-related osteoporosis without current pathological fracture; I50.9 Heart failure, unspecified; Z79.4 Long term (current) use of insulin | CPT/HCPCS: 80053; 80061; 82044; 83036; 99214 ==

== ENCOUNTER 2024-01-16 14:12 | Outpatient (CLI) | payer MEDICARE, OTHER, SELFPAY ==
[2024-01-16 15:05] LABS: Anion Gap 12.6 (5-19); Blood Urea Nitrogen 29 mg/dL (8-23); Calcium 8.5 mg/dL (8.5-10.5); Carbon Dioxide 29 mmol/L (22-29); Chloride 101 mmol/L (98-107); Glucose 267 mg/dL (65-115); Osmolality Calculated 301 mOsm/kg (285-295); Potassium 4.6 mmol/L (3.5-5.1); Sodium 138 mmol/L (136-145)
== END 2024-01-16 14:13 | disposition home or self-care (01) ==
LOC: LAB 14:14
PROVIDERS: PCP Family Medicine; Visit Provider Internal Medicine
DX: N28.9 Disorder of kidney and ureter, unspecified (principal)
CPT/HCPCS: 80048

== ENCOUNTER 2024-02-04 20:17 | Emergency (ER) | payer MEDICARE, OTHER, SELFPAY ==
[2024-02-04 20:20] VITALS: BP 149/83; PULSE 84; RESP 16; TEMP 36.7
--- NOTE | 2024-02-04 20:57 | XRR_ITS ---
PROCEDURE INFORMATION: Exam: XR Right Toe(s) Exam date and time: 02/04/2024 9:49 PM Age: 78 years old Clinical indication: Pain; Toes; Right; Additional info: Great toe; Trauma TECHNIQUE: Imaging protocol: Radiologic exam of the right toes. Views: Minimum 2 views. COMPARISON: No relevant prior studies available. FINDINGS: Bones/joints: Screw in the distal 1st metatarsal. Screw in the 1st proximal phalanx. Comminuted mildly displaced fracture in the base and distal great toe distal phalanx. Fine bone detail is obscured by overlying bandage material. Soft tissues: The soft tissues of the great toe are obscured by bandage material. Soft tissue swelling in the dorsal foot. XR/XR toe RT min 2V [id number] IMPRESSION: Comminuted mildly displaced fracture in the great toe distal phalanx.
--- NOTE | 2024-02-04 21:04 | ED_ITS ---
HPI - Extremity Injury (Lower) General: Chief Complaint: Extremity Problem,Nontraumatic Stated Complaint: Right big toe injury Time Seen by Provider: 02/04/24 20:28 Source: patient Mode of arrival: ambulatory Limitations: no limitations History of Present Illness: Patient is a nice 78-year-old female here for evaluation of a right toe injury that she sustained approximately 4 to 5 days ago. Patient states she has neuropathy in her feet and initially did not realize she had injured the toe. She states yesterday/today she began noticing a blood blister to the toe thus prompting her evaluation. She states she does follow up with Dr. Smallwood regarding her feet. She was seen at walk-in clinic earlier today but disappointed that they did not drain. 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 last echo 08/08/22 showed EF 74% History of pulmonary embolism Anticoagulated Insulin dependent diabetes mellitus Diabetic peripheral neuropathy GERD with stricture s/p dilation x 2 Depression, major, in partial remission Atrial fibrillation Hyperlipidemia Diabetes mellitus History of nonmelanoma skin cancer History of breast cancer Surgical History Hx of cardiac pacemaker Hx of cornea transplant History of esophageal dilatation Hx of tubal ligation Hx of umbilical hernia repair Hx of cataract extraction History of repair of right rotator cuff History of bunionectomy of right great toe History of tonsillectomy History of ventral hernia repair History of cholecystectomy History of lumpectomy of left breast Family History Mother CAD (coronary artery disease) Father Cancer lung (smoker) Grandfather Dementia Cancer Brother Diabetes Son Diabetes Daughter CAD (coronary artery disease) Grandmother CAD (coronary artery disease) Family/Other Chronic kidney disease (CKD) Denies family history of Clotting disorder Suicide Anesthesia complication Bleeding disorder Hypertension Stroke Social History Smoking and tobacco/nicotine status: never used tobacco/nicotine Alcohol intake: never Substance/Drug Use: never Lives independently: Yes Household members: spouse Marital status: Number of children: 3 Number of grandchildren: 4 Current occupational status: retired Physical Exam Const: COMMON NORMALS: no acute distress and no limitations GENERAL APPEARANCE: cooperative NUTRITIONAL APPEARANCE: obese Extremity: OTHER: chronic LE swelling and lymphedema present; small amount of erythema/warmth R lower anterior leg that she states is chronic/without change she has a hematoma formation just proximal to R great toenail-dorsal surface; edema seems to be lifting nail; nails are extremely hypertrophic Skin: NARRATIVE SKIN EXAM: see above Course Consultations: Consultation #1: Dr. Smallwood-stated we could drain/evacuate hematoma, betadine dressing, broad spectrum antibiotics, and he will follow up with her tomorrow morning Vital Signs: Vital signs: Vital Signs Temperature 98.0 F 02/04/24 20:20 Pulse Rate 84 02/04/24 20:20 Respiratory Rate 16 02/04/24 20:20 Blood Pressure 149/83 02/04/24 20:20 Oxygen Delivery Me thod Room Air, Nasal C annula 02/04/24 20:20 MDM - Extremity Injury (Lower) Medical Decision Making Patient here with injury to her R great toe with hematoma formation and nail disruption. Hematoma was evacuated and dressed with betadine dressing. She was given dose of PO abx here and will be sent prescriptions for cipro/cephalexin to cover for staph/pseudomonas as she is a diabetic. Dr. Smallwood is graciously willing to evalute her in the morning. Significant delay in XR as Synapse was down. She was found to have a distal phalanx fracture. Will place in hard sole shoe and again plan for podiatry follow up in the morning. Medical Records I reviewed the patient's medical records. All radiology interpretation(s) finalized by discharge Discharge Plan Discharge Patient Disposition: Home Clinical Impression: Hematoma of great toe Closed fracture of distal phalanx of right great toe Qualifiers: Encounter type: initial encounter Fracture alignment: displaced Qualified Code(s): S92.421A - Displaced fracture of distal phalanx of right great toe, initial encounter for closed fracture Condition: Stable Prescriptions: New Cipro 500 mg tablet 500 mg PO Q12H Qty: 14 0RF cephalexin 500 mg capsule 500 mg PO Q6H 7 Days Qty: 28 0RF No Action aspirin 81 mg tablet,delayed release (DR/EC) 81 mg PO DAILY (DME) CAM boot 8 See Rx Instructions .Route .MEDSUPPLY Qty: 1 0RF Rx Instructions: As directed / non weight bearing (DME) AFO brace for Left ankle See Rx Instructions .Route .MEDSUPPLY Qty: 1 0RF Rx Instructions: As directed to the shoe guys (DME) wheelchair See Rx Instructions .Route .MEDSUPPLY Qty: 1 0RF Rx Instructions: As directed mupirocin 2 % ointment 1 applic topical TID Qty: 15 0RF (DME) insulin syringe-needle U-100 [BD Insulin Syringe] 1 mL 29 gauge x 1/2 syringe See Rx Instructions .Route Qty: 500 0RF Rx Instructions: Inject insulin, twice, daily. (DME) Prafo boot or similar to the right See Rx Instructions .Route .MEDSUPPLY Qty: 1 0RF Rx Instructions: As directed HOME potassium chloride 20 mEq tablet extended release 20 meq PO BID Qty: 60 5RF (DME) Diabetic shoes with 3 sets of insoles See Rx Instructions .Route .MEDSUPPLY Qty: 1 0RF Rx Instructions: As directed ([facility] [place]) pen needle, diabetic [Comfort EZ Pen Buckeye] 32 gauge x 1/4 needle See Rx Instructions .ROUTE .MEDSUPPLY Qty: 100 3RF Rx Instructions: As directed Xarelto 20 mg tablet See Rx Instructions .ROUTE .COMPLEX Qty: 90 3RF Dose Instruction: TAKE ONE TABLET BY MOUTH DAILY Rx Instructions: TAKE ONE TABLET BY MOUTH DAILY lisinopril 5 mg tablet See Rx Instructions .ROUTE .COMPLEX Qty: 90 3RF Dose Instruction: Take 1 tablet by mouth once daily Rx Instructions: Take 1 tablet by mouth once daily pantoprazole 40 mg tablet,delayed release (DR/EC) See Rx Instructions .ROUTE .COMPLEX Qty: 90 1RF Dose Instruction: Take 1 tablet by mouth once daily Rx Instructions: Take 1 tablet by mouth once daily torsemide 20 mg tablet 40 mg PO QAM PRN (Reason: edema) Qty: 60 3RF Novolin 70/30 U-100 Insulin 100 unit/mL (70-30) suspension See Rx Instructions .ROUTE .COMPLEX Qty: 90 0RF Dose Instruction: INJECT 50 UNITS SUBCUTANEOUSLY TWICE DAILY Rx Instructions: INJECT 50 UNITS SUBCUTANEOUSLY TWICE DAILY metoprolol succinate 50 mg tablet extended release 24 hr See Rx Instructions .ROUTE .COMPLEX Qty: 90 0RF Dose Instruction: Take 1 tablet by mouth once daily Rx Instructions: Take 1 tablet by mouth once daily pregabalin 100 mg capsule 100 mg PO BID 90 Days Qty: 180 0RF atorvastatin 80 mg tablet See Rx Instructions .ROUTE .COMPLEX Qty: 90 0RF Dose Instruction: Take 1 tablet by mouth once daily Rx Instructions: Take 1 tablet by mouth once daily sertraline 100 mg tablet See Rx Instructions .ROUTE .COMPLEX Qty: 30 2RF Dose Instruction: Take 1 tablet by mouth once daily Rx Instructions: Take 1 tablet by mouth once daily dofetilide 125 mcg capsule 125 mcg PO Q12H Qty: 270 3RF ibuprofen 600 mg tablet 600 mg PO Q8H PRN (Reason: pain) Qty: 20 0RF Discharge Orders: Discharge ED (Routine); Ordered 02/04/24 Ordered By: Luisa Ball Referrals: Josefa Smith MD [Primary Care Provider] - Activity Restrictions/Additional Instructions: As we discussed Dr. Smallwood will see you tomorrow morning for further evaluation/ treatment of your toe. No weight bearing or limit as much as possible until you see him for further instructions. Please arrive at his office at 8 AM and he will work you into his schedule. Your antibiotics have been sent to [facility] pharmacy. Coding Level of Care Code ED Community Organizer for Alberto Shetty
[2024-02-04] MEDS: ciprofloxacin 500 mg Tablet PO (21:46)
[2024-02-04] MEDS: cephALEXin 500 mg Capsule PO (21:46)
--- NOTE | 2024-02-04 22:22 | XRR_ITS ---
PROCEDURE INFORMATION: Exam: XR Right Toe(s) Exam date and time: 02/04/2024 10:23 PM Age: 78 years old Clinical indication: Pain; Toes; Right; Prior surgery; Surgery date: 6+ months; Surgery type: Bunyon surgery in 2000; Additional info: Great toe pain TECHNIQUE: Imaging protocol: Radiologic exam of the right toes. Views: Minimum 2 views. COMPARISON: CR (LOW EXM, ) 02/04/2024 9:49 PM FINDINGS: Bones/joints: Screw in the distal 1st metatarsal. Screw in the 1st proximal phalanx. Comminuted mildly displaced fracture in the base of the great toe distal phalanx with intra-articular extension. Soft tissues: Partial nail avulsion of the great toe. XR/XR toe RT min 2V [id number] IMPRESSION: Comminuted mildly displaced intra-articular fracture in the great toe distal phalanx.
[2024-02-04 22:45] VITALS: BP 116/74; PULSE 82; RESP 18; O2SAT 91
== END 2024-02-04 22:47 | disposition home or self-care (01) ==
PROVIDERS: Emergency Provider Physician Assistant; PCP Family Medicine
DX: S92.421A Displaced fracture of distal phalanx of right great toe, initial encounter for closed fracture (principal); S90.111A Contusion of right great toe without damage to nail, initial encounter; Z79.82 Long term (current) use of aspirin; Z79.4 Long term (current) use of insulin; E66.9 Obesity, unspecified; Z68.36 Body mass index [BMI] 36.0-36.9, adult; Z95.0 Presence of cardiac pacemaker; E11.22 Type 2 diabetes mellitus with diabetic chronic kidney disease; I13.0 Hypertensive heart and chronic kidney disease with heart failure and stage 1 through stage 4 chronic kidney disease, or unspecified chronic kidney disease; N18.2 Chronic kidney disease, stage 2 (mild); I50.9 Heart failure, unspecified; E78.5 Hyperlipidemia, unspecified; Z85.3 Personal history of malignant neoplasm of breast; X58.XXXA Exposure to other specified factors, initial encounter
CPT/HCPCS: 73660; 99283; A6446

== ENCOUNTER → 2024-02-05 08:13 | Outpatient (BNVA) | payer MEDICARE, OTHER, SELFPAY | PROVIDERS: PCP Family Medicine; Visit Provider Podiatrist Foot & Ankle Surgery | DX: S92.421A Displaced fracture of distal phalanx of right great toe, initial encounter for closed fracture; L60.1 Onycholysis; X58.XXXA Exposure to other specified factors, initial encounter | CPT/HCPCS: 11730; A6219 ==

== ENCOUNTER → 2024-02-16 10:45 | Outpatient (BNVA) | payer MEDICARE, OTHER, SELFPAY | PROVIDERS: PCP Family Medicine; Visit Provider Podiatrist Foot & Ankle Surgery | DX: L60.1 Onycholysis (principal); S92.421A Displaced fracture of distal phalanx of right great toe, initial encounter for closed fracture; E11.69 Type 2 diabetes mellitus with other specified complication; X58.XXXA Exposure to other specified factors, initial encounter; Z79.4 Long term (current) use of insulin | CPT/HCPCS: 11721; 99213 ==

== ENCOUNTER → 2024-03-02 10:05 | Outpatient (BNVA) | payer MEDICARE, OTHER, SELFPAY | PROVIDERS: PCP Family Medicine; Visit Provider Podiatrist Foot & Ankle Surgery | DX: L60.1 Onycholysis (principal); S92.421A Displaced fracture of distal phalanx of right great toe, initial encounter for closed fracture; X58.XXXA Exposure to other specified factors, initial encounter | CPT/HCPCS: 99213 ==

== ENCOUNTER 2024-03-30 12:14 | Outpatient (CLI) | payer MEDICARE, OTHER, SELFPAY ==
[2024-03-30 13:17] LABS: Estmated Average Glucose 318; Hemoglobin A1C 12.7 % (4.0-6.0)
[2024-03-30 13:22] LABS: Alanine Aminotransferase 18 U/L (0-33); Albumin Level 3.7 g/dL (3.5-5.2); Alkaline Phosphatase 91 U/L (35-105); Anion Gap 12.7 (5-19); Aspartate Amino Transferase 24 U/L (0-32); Blood Urea Nitrogen 43 mg/dL (8-23); Carbon Dioxide 28 mmol/L (22-29); Chloride 101 mmol/L (98-107); Chol HDL Ratio 4.29 mg/dL (0.0-4.40); Cholesterol 206 mg/dL (0-200); Globulin 3.5 g/dL (1.3-4.6); Glucose 244 mg/dL (65-115); HDL Cholesterol 48 mg/dL (60-100); LDL Cholesterol Calculated 104 mg/dL (50-129); LDL HDL Ratio 2.17 RATIO (0.00-3.22); Osmolality Calculated 303 mOsm/kg (285-295); Potassium 4.7 mmol/L (3.5-5.1); Sodium 137 mmol/L (136-145); Total Bilirubin 0.6 mg/dL (0.15-1.2); Total Protein 7.2 g/dL (6.6-8.7); Triglycerides 269 mg/dL (0-150)
[2024-03-30 13:26] LABS: Creatinine Urine, Random 122 mg/dL (28-217); Microalbum Creatinine Ratio Ur 16 mg/dL (0-20); Microalbumin Random Urine 2 ug/dL (0-20)
== END 2024-03-30 12:15 | disposition home or self-care (01) ==
LOC: LAB 12:20
PROVIDERS: PCP Family Medicine; Visit Provider Internal Medicine
DX: E11.42 Type 2 diabetes mellitus with diabetic polyneuropathy (principal); E78.2 Mixed hyperlipidemia; E11.9 Type 2 diabetes mellitus without complications
CPT/HCPCS: 36415; 80053; 80061; 82044; 83036

== ENCOUNTER → 2024-04-22 08:00 | Outpatient (BNVA) | payer MEDICARE, OTHER, SELFPAY | PROVIDERS: PCP Family Medicine; Visit Provider Student in an Organized Health Care Education/Training Program | DX: R13.10 Dysphagia, unspecified (principal) | CPT/HCPCS: 99204 ==

== ENCOUNTER → 2024-04-23 11:00 | Outpatient (BNVA) | payer MEDICARE, OTHER, SELFPAY | PROVIDERS: PCP Family Medicine; Visit Provider Podiatrist Foot & Ankle Surgery | DX: E11.8 Type 2 diabetes mellitus with unspecified complications (principal); L60.1 Onycholysis; S92.421A Displaced fracture of distal phalanx of right great toe, initial encounter for closed fracture; E11.621 Type 2 diabetes mellitus with foot ulcer; L97.529 Non-pressure chronic ulcer of other part of left foot with unspecified severity; X58.XXXA Exposure to other specified factors, initial encounter; Z79.4 Long term (current) use of insulin | CPT/HCPCS: 99213 ==

== ENCOUNTER → 2024-04-30 11:00 | Outpatient (BNVA) | payer MEDICARE, OTHER, SELFPAY | PROVIDERS: PCP Family Medicine; Visit Provider Podiatrist Foot & Ankle Surgery | DX: E11.8 Type 2 diabetes mellitus with unspecified complications (principal); L60.1 Onycholysis; S92.421A Displaced fracture of distal phalanx of right great toe, initial encounter for closed fracture; X58.XXXA Exposure to other specified factors, initial encounter; E11.610 Type 2 diabetes mellitus with diabetic neuropathic arthropathy; Z79.4 Long term (current) use of insulin | CPT/HCPCS: 99213 ==

== ENCOUNTER → 2024-05-10 14:55 | Outpatient (BNVA) | payer MEDICARE, OTHER, SELFPAY | PROVIDERS: PCP Family Medicine; Visit Provider Nurse Practitioner Family | DX: I48.21 Permanent atrial fibrillation (principal); Z95.0 Presence of cardiac pacemaker; I11.0 Hypertensive heart disease with heart failure; I50.9 Heart failure, unspecified | CPT/HCPCS: 99214 ==

== ENCOUNTER → 2024-05-19 10:03 | Outpatient (BNVA) | payer MEDICARE, OTHER, SELFPAY | PROVIDERS: PCP Family Medicine; Referring Provider Family Medicine; Visit Provider Nurse Practitioner Family | DX: L72.0 Epidermal cyst (principal); L30.4 Erythema intertrigo; L82.0 Inflamed seborrheic keratosis; I87.2 Venous insufficiency (chronic) (peripheral); D22.5 Melanocytic nevi of trunk | CPT/HCPCS: 99204 ==

== ENCOUNTER → 2024-05-21 09:30 | Outpatient (BNVA) | payer MEDICARE, OTHER, SELFPAY | PROVIDERS: PCP Family Medicine; Visit Provider Internal Medicine | DX: E11.42 Type 2 diabetes mellitus with diabetic polyneuropathy (principal); E11.9 Type 2 diabetes mellitus without complications; E78.2 Mixed hyperlipidemia; M81.0 Age-related osteoporosis without current pathological fracture; I50.9 Heart failure, unspecified; E11.40 Type 2 diabetes mellitus with diabetic neuropathy, unspecified; Z79.4 Long term (current) use of insulin | CPT/HCPCS: 99214 ==

== ENCOUNTER → 2024-06-09 13:49 | Outpatient (BNVA) | payer MEDICARE, OTHER, SELFPAY | PROVIDERS: PCP Family Medicine; Visit Provider Dermatology | DX: L72.0 Epidermal cyst (principal) | CPT/HCPCS: 10060; 11900 ==

== ENCOUNTER → 2024-09-13 13:20 | Outpatient (BNVA) | payer MEDICARE, OTHER, SELFPAY | PROVIDERS: PCP Family Medicine; Visit Provider Dermatology | DX: D48.5 Neoplasm of uncertain behavior of skin (principal); R20.8 Other disturbances of skin sensation; R23.8 Other skin changes; L53.8 Other specified erythematous conditions | CPT/HCPCS: 11442; 13131 ==

== ENCOUNTER 2024-09-24 12:13 | Outpatient (CLI) | payer MEDICARE, OTHER, SELFPAY ==
[2024-09-24 13:17] LABS: Estmated Average Glucose 315; Hemoglobin A1C 12.6 % (4.0-6.0)
[2024-09-24 13:24] LABS: Alanine Aminotransferase 18 U/L (0-33); Albumin Level 3.9 g/dL (3.5-5.2); Alkaline Phosphatase 118 U/L (35-105); Anion Gap 15.7 (5-19); Aspartate Amino Transferase 20 U/L (0-32); Blood Urea Nitrogen 21 mg/dL (8-23); Calcium 9.3 mg/dL (8.5-10.5); Carbon Dioxide 25 mmol/L (22-29); Chloride 96 mmol/L (98-107); Chol HDL Ratio 3.04 mg/dL (0.0-4.40); Cholesterol 173 mg/dL (0-200); Globulin 3.5 g/dL (1.3-4.6); HDL Cholesterol 57 mg/dL (60-100); LDL Cholesterol Calculated 58 mg/dL (50-129); LDL HDL Ratio 1.02 RATIO (0.00-3.22); Osmolality Calculated 303 mOsm/kg (285-295); Potassium 4.7 mmol/L (3.5-5.1); Sodium 132 mmol/L (136-145); Total Bilirubin 1.5 mg/dL (0.15-1.2); Total Protein 7.4 g/dL (6.6-8.7); Triglycerides 289 mg/dL (0-150)
[2024-09-24 13:29] LABS: Glucose 563 mg/dL (65-115)
[2024-09-24 13:30] LABS: Creatinine Urine, Random 27 mg/dL (28-217); Microalbum Creatinine Ratio Ur 37 mg/dL (0-20); Microalbumin Random Urine 1 ug/dL (0-20)
== END 2024-09-24 12:14 | disposition home or self-care (01) ==
PROVIDERS: PCP Family Medicine; Visit Provider Internal Medicine
DX: E11.9 Type 2 diabetes mellitus without complications (principal); E78.2 Mixed hyperlipidemia; E11.42 Type 2 diabetes mellitus with diabetic polyneuropathy
CPT/HCPCS: 36415; 80053; 80061; 82044; 83036

== ENCOUNTER → 2024-10-11 13:08 | Outpatient (BNVA) | payer MEDICARE, OTHER, SELFPAY | PROVIDERS: PCP Family Medicine; Visit Provider Internal Medicine | DX: E11.9 Type 2 diabetes mellitus without complications (principal); E78.2 Mixed hyperlipidemia; M81.0 Age-related osteoporosis without current pathological fracture; I50.9 Heart failure, unspecified; E11.40 Type 2 diabetes mellitus with diabetic neuropathy, unspecified | CPT/HCPCS: 36415; 80053; 84681; 86337; 86341; 99214 ==

== ENCOUNTER → 2024-11-29 11:37 | Outpatient (BNVA) | payer MEDICARE, OTHER, SELFPAY | PROVIDERS: PCP Family Medicine; Visit Provider Internal Medicine | DX: E11.42 Type 2 diabetes mellitus with diabetic polyneuropathy (principal); E11.40 Type 2 diabetes mellitus with diabetic neuropathy, unspecified; I50.9 Heart failure, unspecified; M81.0 Age-related osteoporosis without current pathological fracture; E78.2 Mixed hyperlipidemia | CPT/HCPCS: 99214 ==

== ENCOUNTER → 2024-12-23 14:49 | Outpatient (BNVA) | payer MEDICARE, OTHER, SELFPAY | PROVIDERS: PCP Family Medicine; Visit Provider Podiatrist Foot & Ankle Surgery | DX: E11.42 Type 2 diabetes mellitus with diabetic polyneuropathy (principal); B35.1 Tinea unguium; L84 Corns and callosities; E11.610 Type 2 diabetes mellitus with diabetic neuropathic arthropathy; Z79.4 Long term (current) use of insulin | CPT/HCPCS: 11055; 11721; 99213 ==

== ENCOUNTER → 2025-03-07 15:56 | Outpatient (BNVA) | payer MEDICARE, OTHER, SELFPAY | PROVIDERS: PCP Family Medicine; Referring Provider Podiatrist Foot & Ankle Surgery; Visit Provider Podiatrist Foot & Ankle Surgery | DX: E11.42 Type 2 diabetes mellitus with diabetic polyneuropathy (principal); B35.1 Tinea unguium; L84 Corns and callosities; E11.621 Type 2 diabetes mellitus with foot ulcer; L97.522 Non-pressure chronic ulcer of other part of left foot with fat layer exposed; E11.610 Type 2 diabetes mellitus with diabetic neuropathic arthropathy | CPT/HCPCS: 10160; 11721; 99214 ==

== ENCOUNTER → 2025-03-15 14:43 | Outpatient (BNVA) | payer MEDICARE, OTHER, SELFPAY | PROVIDERS: PCP Family Medicine; Visit Provider Thoracic Surgery (Cardiothoracic Vascular Surgery) | DX: E11.52 Type 2 diabetes mellitus with diabetic peripheral angiopathy with gangrene (principal); E11.621 Type 2 diabetes mellitus with foot ulcer; L97.421 Non-pressure chronic ulcer of left heel and midfoot limited to breakdown of skin | CPT/HCPCS: 97597; 99203; A6021 ==

== ENCOUNTER → 2025-03-23 15:06 | Outpatient (BNVA) | payer MEDICARE, OTHER, SELFPAY | PROVIDERS: PCP Family Medicine; Visit Provider Thoracic Surgery (Cardiothoracic Vascular Surgery) | DX: E11.52 Type 2 diabetes mellitus with diabetic peripheral angiopathy with gangrene (principal); E11.621 Type 2 diabetes mellitus with foot ulcer; L97.421 Non-pressure chronic ulcer of left heel and midfoot limited to breakdown of skin | CPT/HCPCS: 97597 ==

== ENCOUNTER → 2025-03-30 13:56 | Outpatient (BNVA) | payer MEDICARE, OTHER, SELFPAY | PROVIDERS: PCP Family Medicine; Visit Provider Thoracic Surgery (Cardiothoracic Vascular Surgery) | DX: E11.52 Type 2 diabetes mellitus with diabetic peripheral angiopathy with gangrene (principal); E11.621 Type 2 diabetes mellitus with foot ulcer; L97.421 Non-pressure chronic ulcer of left heel and midfoot limited to breakdown of skin | CPT/HCPCS: 97597; A6021 ==

== ENCOUNTER → 2025-04-07 14:56 | Outpatient (BNVA) | payer MEDICARE, OTHER, SELFPAY | PROVIDERS: PCP Family Medicine; Visit Provider Thoracic Surgery (Cardiothoracic Vascular Surgery) | DX: E11.52 Type 2 diabetes mellitus with diabetic peripheral angiopathy with gangrene (principal); E11.621 Type 2 diabetes mellitus with foot ulcer; L97.421 Non-pressure chronic ulcer of left heel and midfoot limited to breakdown of skin | CPT/HCPCS: 97597; A6021 ==

== ENCOUNTER → 2025-05-09 09:50 | Outpatient (BNVA) | payer MEDICARE, OTHER, SELFPAY | PROVIDERS: PCP Family Medicine; Visit Provider Internal Medicine Cardiovascular Disease | DX: I13.0 Hypertensive heart and chronic kidney disease with heart failure and stage 1 through stage 4 chronic kidney disease, or unspecified chronic kidney disease (principal); N18.2 Chronic kidney disease, stage 2 (mild); I50.32 Chronic diastolic (congestive) heart failure; I48.91 Unspecified atrial fibrillation; Z79.01 Long term (current) use of anticoagulants; Z79.82 Long term (current) use of aspirin; E78.5 Hyperlipidemia, unspecified; Z95.0 Presence of cardiac pacemaker; Z86.711 Personal history of pulmonary embolism | CPT/HCPCS: 99214 ==

== ENCOUNTER → 2025-05-19 13:35 | Outpatient (BNVA) | payer MEDICARE, OTHER, SELFPAY | PROVIDERS: PCP Family Medicine; Visit Provider Nurse Practitioner Family | DX: L72.0 Epidermal cyst (principal); L82.1 Other seborrheic keratosis; L57.8 Other skin changes due to chronic exposure to nonionizing radiation; L81.4 Other melanin hyperpigmentation; D48.5 Neoplasm of uncertain behavior of skin; L57.0 Actinic keratosis | CPT/HCPCS: 11102; 17000; 99213 ==

== ENCOUNTER 2025-05-25 13:58 | Outpatient (CLI) | payer MEDICARE, OTHER, SELFPAY ==
[2025-05-25 15:14] LABS: Estmated Average Glucose 280; Hemoglobin A1C 11.4 % (4.0-6.0)
[2025-05-25 15:18] LABS: Creatinine Urine, Random 113 mg/dL (28-217); Microalbum Creatinine Ratio Ur 27 mg/dL (0-20)
[2025-05-25 15:30] LABS: Alanine Aminotransferase 29 U/L (0-33); Albumin Level 3.7 g/dL (3.5-5.2); Alkaline Phosphatase 98 U/L (35-105); Anion Gap 15.0 (5-19); Aspartate Amino Transferase 35 U/L (0-32); Blood Urea Nitrogen 26 mg/dL (8-23); Calcium 8.8 mg/dL (8.5-10.5); Carbon Dioxide 27 mmol/L (22-29); Chloride 100 mmol/L (98-107); Cholesterol 154 mg/dL (0-200); Globulin 3.3 g/dL (1.3-4.6); Glucose 252 mg/dL (65-115); HDL Cholesterol 58 mg/dL (60-100); Osmolality Calculated 299 mOsm/kg (285-295); Potassium 4.0 mmol/L (3.5-5.1); Sodium 138 mmol/L (136-145); Total Protein 7.0 g/dL (6.6-8.7); Triglycerides 239 mg/dL (0-150)
== END 2025-05-25 13:59 | disposition home or self-care (01) ==
PROVIDERS: PCP Family Medicine; Visit Provider Internal Medicine
DX: E11.42 Type 2 diabetes mellitus with diabetic polyneuropathy (principal); E11.40 Type 2 diabetes mellitus with diabetic neuropathy, unspecified; I50.9 Heart failure, unspecified; M81.0 Age-related osteoporosis without current pathological fracture; E78.2 Mixed hyperlipidemia
CPT/HCPCS: 36415; 80053; 80061; 82044; 83036

== ENCOUNTER → 2025-06-14 16:11 | Outpatient (BNVA) | payer MEDICARE, OTHER, SELFPAY | PROVIDERS: PCP Family Medicine; Visit Provider Internal Medicine Endocrinology, Diabetes & Metabolism | DX: E11.65 Type 2 diabetes mellitus with hyperglycemia (principal); E11.42 Type 2 diabetes mellitus with diabetic polyneuropathy; E78.2 Mixed hyperlipidemia; M81.0 Age-related osteoporosis without current pathological fracture; I50.9 Heart failure, unspecified; Z79.4 Long term (current) use of insulin | CPT/HCPCS: 99214 ==

== ENCOUNTER 2025-08-17 13:31 | Outpatient (CLI) | payer MEDICARE, OTHER, SELFPAY ==
[2025-08-17 14:19] LABS: Estmated Average Glucose 212; Hemoglobin A1C 9.0 % (4.0-6.0)
[2025-08-17 14:24] LABS: Alanine Aminotransferase 20 U/L (0-33); Albumin Level 3.8 g/dL (3.5-5.2); Alkaline Phosphatase 100 U/L (35-105); Anion Gap 15.3 (5-19); Aspartate Amino Transferase 36 U/L (0-32); Blood Urea Nitrogen 22 mg/dL (8-23); Calcium 9.0 mg/dL (8.5-10.5); Carbon Dioxide 30 mmol/L (22-29); Chloride 102 mmol/L (98-107); Cholesterol 146 mg/dL (0-200); Globulin 3.6 g/dL (1.3-4.6); Glucose 129 mg/dL (65-115); HDL Cholesterol 58 mg/dL (60-100); Osmolality Calculated 301 mOsm/kg (285-295); Potassium 4.3 mmol/L (3.5-5.1); Sodium 143 mmol/L (136-145); Total Protein 7.4 g/dL (6.6-8.7); Triglycerides 140 mg/dL (0-150)
[2025-08-17 14:29] LABS: Creatinine Urine, Random 175 mg/dL (28-217); Microalbum Creatinine Ratio Ur 29 mg/dL (0-20)
== END 2025-08-17 13:32 ==
LOC: LAB 13:33
PROVIDERS: Internal Medicine Endocrinology, Diabetes & Metabolism; PCP Family Medicine; Visit Provider Internal Medicine
DX: E11.9 Type 2 diabetes mellitus without complications (principal); E78.2 Mixed hyperlipidemia; M81.0 Age-related osteoporosis without current pathological fracture; I50.9 Heart failure, unspecified; E11.40 Type 2 diabetes mellitus with diabetic neuropathy, unspecified; E11.22 Type 2 diabetes mellitus with diabetic chronic kidney disease; N18.30 Chronic kidney disease, stage 3 unspecified
CPT/HCPCS: 36415; 80053; 80061; 82044; 83036; 99214